=== PATIENT | female | born 1995 | race Caucasian/White ===

== ENCOUNTER 2017-06-23 23:09 | Emergency (ER) | payer BC, SELFPAY ==
[2017-06-23 23:16] VITALS: BP 138/124; PULSE 134; RESP 16; TEMP 37.2; O2SAT 100; BMI 32.1
--- NOTE | 2017-06-23 23:54 | HMH.EDALLER ---
ED Disposition Clinical Impression: Allergic reaction Qualifiers: Encounter type: initial encounter Qualified Code(s): T78.40XA - Allergy, unspecified, initial encounter Disposition: Home, Self-Care Condition on Discharge: Good Instructions: Urticaria (Alternative Therapy), DI for Hives Additional Instructions: Please take Benadryl 1-2 pills every 4-6 hours as needed, for itching, complete the steroid course (Medrol dosepack). Time of Disposition: 00:30 - Critical Care Critical Care Time: No Attestation: On 06/23/17, the high probability of a clinically significant, sudden or life threatening deterioration of the following system(s) required my full and direct attention, intervention and personal management. The time I documented below is in addition to time spent performing reported procedures but includes the following listed in this critical care notation. Medical Decision Making - Medical Records Medical records reviewed: Yes: I reviewed the patient's medical records. Vital Signs: 06/23/17 23:16 Temperature 99.0 F Temperature Source Oral Pulse Rate [Brachial] 134 H Respiratory Rate 16 Blood Pressure [Right Arm] 138/124 Blood Pressure Mean [Right Arm] 128 02 Sat by Pulse Oximetry 100 Oxygen Delivery Method Room Air Orders (Tests/Meds): ED MEDICATIONS Discontinued Medications Generic Name Dose Route Start Last Admin Trade Name Freq PRN Reason Stop Dose Admin Acetaminophen 1,000 mg 06/24/17 00:14 06/24/17 00:16 Tylenol 500mg Tablet PO 06/24/17 00:15 1,000 mg ONCE ONE Administration Diphenhydramine HCl 50 mg 06/23/17 23:25 06/23/17 23:33 Benadryl 50mg/1ml Vial IV 06/23/17 23:26 50 mg ONCE ONE Administration Diphenhydramine HCl 25 mg 06/24/17 00:34 06/24/17 00:50 Benadryl 50mg/1ml Vial IV 06/24/17 00:35 25 mg ONCE ONE Administration Famotidine 20 mg 06/23/17 23:25 06/23/17 23:33 Pepcid 20mg/2ml Vial IV 06/23/17 23:26 20 mg ONCE ONE Administration Methylprednisolone Sodium Succinate 125 mg 06/23/17 23:24 06/23/17 23:33 Solu-Medrol 125mg/2ml Vial IV 06/23/17 23:25 125 mg ONCE ONE Administration - Santana Inquiry Pt receiving controlled substance: No - Reevaluation(s) Time: 00:20 Reevaluation #1: Upon reevaluation patient appears medically stable, in no acute distress, with rash no significantly improved. Advised patient to take medications prescribed as directed and follow-up with PCP if any further relapses. Allergic React/Insect Bite HPI - General Chief complaint: Allergic Reaction Stated complaint: whelps over body and spreading Time Seen by Provider: 06/23/17 23:54 Mode of Arrival - ED Triage: Ambulatory Limitations: No Limitations - History of Present Illness HPI narrative: This is a 30-year-old male patient admitted to the emergency room with body aches, generalized rash and itching for the past 1 hour after eating at a local restaurant. Patient denies any neck swelling, face swelling, difficulty breathing or difficulty swallowing. MD complaint: allergic reaction Onset (ago): hour(s) (1) Exposure: food Symptoms: rash, itching Treatment prior to arrival: none Allergies/Adverse Reactions: Allergies Allergy/AdvReac Type Severity Reaction Status Date / Time No Known Allergies Allergy Verified 06/23/17 23:23 Previous Allergic Reaction History: none Severity: mild - Related Data Home Medications Medication Instructions Recorded Confirmed Noreth-Ethinyl Estradiol/Iron 1 tab PO HS 06/24/17 06/25/17 [Hozczylm-Cffbw-Ev 0.8-0.025 mg] Previous Rx's Medication Instructions Recorded Azithromycin [Zithromax 500mg Tab 500 mg PO DAILY #3 tab 06/26/17 [facility]] Cefdinir [Omnicef 300mg Capsule] 300 mg PO BID #20 cap 06/26/17 [facility] History I have reviewed the patient's past medical history: Yes - *Social History Smoking Status: Current every day smoker Tobacco Type: cigarettes A
== END 2017-06-24 00:54 | disposition home or self-care (01) ==
PROVIDERS: Emergency Provider Emergency Medicine; Family Provider Family Medicine
DX: L50.0 Allergic urticaria (principal); F17.210 Nicotine dependence, cigarettes, uncomplicated; Z79.3 Long term (current) use of hormonal contraceptives
CPT/HCPCS: 96374; 96375; 96376; 99282

== ENCOUNTER 2017-06-24 16:29 | Observation (INO) | payer BC, SELFPAY ==
--- NOTE | 2017-06-24 16:33 | HMH.HP ---
*Admission Date: 06/24/17 <Shagufta Cooper 06/24/17 16:38> *Chief complaint: SOA, chest tightness, hives <Shagufta Cooper 06/24/17 16:38> *History of present illness: Ms. Ordaz is a 22 yo female who began getting SOA yesterday, she then broke out in hives. She states she had a cough and some RUQ pain that began one day prior to her SOA and hives. The hives became so bad she presented to the ER. She was given steroids, benadryl, and famotadine and sent home with a rx for a steroid pack, which she has not yet filled. She states the hives improved but the SOA did not. Her chest feels tight, like someone is sitting on it. Of note, she takes OCP's and has smoked about 3/4 a pack of cigarettes for the past few years. She did not have any workup for her SOA in the ER. She presented to the office of [facility] today as a f/u and is still having the SOA and CP. She states the hives are starting to return on her ankles. Her HR was elevated in the office. She will be admitted for further evaluation and treatment and to r/o a PE. <Shagufta Cooper 06/24/17 17:06> [facility] History I have reviewed the patient's past medical history: Yes <Shagufta Cooper 06/24/17 17:06> Medical History: Denies:: Arrhythmia, Asthma, Atherosclerotic Heart Disease, Atrial Fibrillation, Cardiomyopathy, Chronic Obstructive Pulmonary Disease (COPD), Coronary Artery Disease, Deep Vein Thrombosis, Diabetes Mellitus Type 2, Gastroesophageal Reflux Disease(GERD), Hyperlipidemia, Hypertension, Migraine, Pulmonary Embolism, Renal Insufficiency, Valvular Heart Disease <Shagufta Cooper 06/24/17 17:06> Laterality Cases: Bilateral: Tonsillectomy <Shagufta Cooper 06/24/17 17:06> - *Social History Smoking Status: Current every day smoker <Shagufta Cooper 06/24/17 16:38> Tobacco Type: cigarettes <Shagufta Cooper 06/24/17 16:38> Alcohol Intake: never <Shagufta Cooper 06/24/17 16:38> *Family Hx:: no Anemia, no Asthma, no Cancer, no Coronary Artery Disease, no Diabetes, no Heart Attack, no Hyperlipidemia, no Hypertension, no Stroke <Shagufta Cooper 06/24/17 17:06> Review of Systems - Constitutional Denies fatigue, Denies night sweats, Denies weakness <Shagufta Cooper 06/24/17 17:06> - Eyes Denies blurry vision, Denies double vision <Shagufta Cooper 06/24/17 17:06> - ENT Denies nasal congestion, Denies sore throat <Shagufta Cooper 06/24/17 17:06> - *Cardiovascular Reports chest pain, Reports shortness of breath, Denies generalized swelling <Shagufta Cooper 06/24/17 17:06> - *Respiratory Reports cough, Reports shortness of breath <Shagufta Cooper 06/24/17 17:06> - *Gastrointestinal Reports abdominal pain (RUQ), Denies loose stools, Denies heartburn, Denies nausea, Denies vomiting <Shagufta Cooper 06/24/17 17:06> - *Genitourinary Denies difficulty urinating, Denies painful urination <Shagufta Cooper 06/24/17 17:06> - *Musculoskeletal Denies joint pain, Denies body aches <Shagufta Cooper 06/24/17 17:06> - *Neurologic Denies dizziness, Denies headache(s) <Shagufta Cooper 06/24/17 17:06> Meds Home Medications Medication Instructions Recorded Confirmed Type Noreth-Ethinyl Estradiol/Iron 1 tab PO DAILY 06/24/17 06/24/17 History [Qrbhwbpr-Shcuw-Fz 0.8-0.025 mg] <Johnny Escoto 06/24/17 18:33> Allergies Allergy/AdvReac Type Severity Reaction Status Date / Time No Known Allergies Allergy Verified 06/23/17 23:23 <Johnny Escoto 06/24/17 18:33> Exam Vital signs and Labs for Last 24 Hours: Temp Resp BP Pulse Ox 98.3 F 117 H 140/88 95 06/24/17 16:46 06/24/17 16:46 06/24/17 16:46 06/24/17 16:46 Laboratory Results - last 24 hr 06/24/17 17:30: WBC 12.1 H, RBC 4.85, Hgb 13.8, Hct 41.1, MCV 84.7, MCH 28.5, MCHC 33.6, RDW 13.1, Plt Count 316, MPV 8.2, Neut % (Auto) 85.2 H, Lymph % (Auto) 11.0, [place] % (Auto) 3.4, Eos % (Auto) 0.2, Baso % (Auto) 0.3, Neut # (Auto) 10.3 H, Lymph # (Auto) 1.3, [place] # (Auto) 0.4, Eos
--- NOTE | 2017-06-24 16:38 | P.HP_ITS ---
*Admission Date: 06/24/17 <Shagufta Cooper 06/24/17 16:38> *Chief complaint: SOA, chest tightness, hives <Shagufta Cooper 06/24/17 16:38> *History of present illness: Ms. Ordaz is a 22 yo female who began getting SOA yesterday, she then broke out in hives. She states she had a cough and some RUQ pain that began one day prior to her SOA and hives. The hives became so bad she presented to the ER. She was given steroids, benadryl, and famotadine and sent home with a rx for a steroid pack, which she has not yet filled. She states the hives improved but the SOA did not. Her chest feels tight, like someone is sitting on it. Of note, she takes OCP's and has smoked about 3/4 a pack of cigarettes for the past few years. She did not have any workup for her SOA in the ER. She presented to the office of [facility] today as a f/u and is still having the SOA and CP. She states the hives are starting to return on her ankles. Her HR was elevated in the office. She will be admitted for further evaluation and treatment and to r/o a PE. <Shagufta Cooper 06/24/17 17:06> [facility] History I have reviewed the patient's past medical history: Yes <Shagufta Cooper 06/24 17:06> Medical History: Denies:: Arrhythmia, Asthma, Atherosclerotic Heart Disease, Atrial Fibrillation, Cardiomyopathy, Chronic Obstructive Pulmonary Disease (COPD), Coronary Artery Disease, Deep Vein Thrombosis, Diabetes Mellitus Type 2, Gastroesophageal Reflux Disease(GERD), Hyperlipidemia, Hypertension, Migraine, Pulmonary Embolism, Renal Insufficiency, Valvular Heart Disease <Shagufta Cooper 06/24/17 17:06> Laterality Cases: Bilateral: Tonsillectomy <Shagufta Cooper 06/24/17 17:06> - *Social History Smoking Status: Current every day smoker <Shagufta Cooper 06/24/17 16:38> Tobacco Type: cigarettes <Shagufta Cooper 06/24/17 16:38> Alcohol Intake: never <Shagufta Cooper 06/24/17 16:38> *Family Hx:: no Anemia, no Asthma, no Cancer, no Coronary Artery Disease, no Diabetes, no Heart Attack, no Hyperlipidemia, no Hypertension, no Stroke < Shagufta Cooper 06/24/17 17:06> Review of Systems - Constitutional Denies fatigue, Denies night sweats, Denies weakness <Shagufta Cooper 17:06> - Eyes Denies blurry vision, Denies double vision <Shagufta Cooper 06/24/17 17:06> - ENT Denies nasal congestion, Denies sore throat <Shagufta Cooper 06/24/17 17:06> - *Cardiovascular Reports chest pain, Reports shortness of breath, Denies generalized swelling < Shagufta Cooper 06/24/17 17:06> - *Respiratory Reports cough, Reports shortness of breath <Shagufta Cooper 06/24/17 17:06> - *Gastrointestinal Reports abdominal pain (RUQ), Denies loose stools, Denies heartburn, Denies nausea, Denies vomiting <Shagufta Cooper 06/24/17 17:06> - *Genitourinary Denies difficulty urinating, Denies painful urination <[facility]:06> - *Musculoskeletal Denies joint pain, Denies body aches <Shagufta Cooper 06/24/17 17:06> - *Neurologic Denies dizziness, Denies headache(s) <Shagufta Cooper 06/24/17 17:06> Meds Home Medications Medication Instructions Recorded Confirmed Type Noreth-Ethinyl Estradiol/Iron 1 tab PO DAILY 06/24/17 06/24/17 History [Ogtqvyav-Pbmzq-Bg 0.8-0.025 mg] <Johnny Escoto 06/24/17 18:33> Allergies Allergy/AdvReac Type Severity Reaction Status Date / Time No Known Allergies Allergy Verified 06/23/17 23:23 <Johnny Escoto 06/24/17 18:33> Exam Vital signs and Labs for Last 24 Hours: Temp Resp BP Pu
[2017-06-24 16:46] VITALS: BP 140/88; RESP 117; TEMP 36.8; O2SAT 95; BMI 32.4; BMI 33.5
--- NOTE | 2017-06-24 17:03 | CT_ITS ---
CT Req chest with PE protocol CLINICAL INDICATION: ITS.REASON: Chest pain, shortness of breath ORDERING PHYSICIAN: Johnny Escoto MD PATIENT AGE: 22 years TECHNIQUE: Axial images obtained following intravenous ministration 66 mL's of Isovue-370 COMPARISON: None FINDINGS: No evidence of pulmonary embolus. No evidence of aortic aneurysm or dissection. No mediastinal or hilar mass. There are few scattered small nodes in the mediastinum but no dominant adenopathy. There are small nodes in the right hilum measuring up to 14 x 12 mm. Patchy areas of groundglass opacity noted in both lungs suggesting low-grade pneumonia. No effusions or suspicious nodules. IMPRESSION: 1. No evidence of pulmonary embolus. 2. Bilateral patchy areas of groundglass density suspicious for low-grade pneumonia
[2017-06-24 18:11] LABS: Basophils % 0.3 % (0.1-2.0); Eosinophils % 0.2 % (0.1-12.0); Hematocrit 41.1 % (37.0-47.0); Hemoglobin 13.8 g/dL (12.2-16.2); Lymphocytes # 1.3 K/mm3 (0.7-4.5); Mean Corpuscular HGB Conc 33.6 g/dL (31.8-35.4); Mean Corpuscular Hemoglobin 28.5 pg (27.0-31.2); Mean Corpuscular Volume 84.7 fl (81-99); Mean Platelet Volume 8.2 fl (7.4-10.4); Monocytes # 0.4 K/mm3 (0.1-1.0); Monocytes % 3.4 % (1.7-9.3); Neutrophils # 10.3 K/mm3 (1.8-7.8); Neutrophils % 85.2 % (37.0-80.0); Platelet Count 316 K/mm3 (142-424); Red Blood Count 4.85 M/mm3 (4.20-5.40); Red Cell Distribution Width 13.1 % (11.5-17.5); White Blood Count 12.1 K/mm3 (4.8-10.8)
[2017-06-24 18:20] LABS: HCG Qualitative, Serum Negative (Negative)
[2017-06-24 18:24] LABS: Alanine Aminotransferase 20 U/L (12-78); Albumin Level 3.9 gm/dL (3.4-5.0); Albumin/Globulin Ratio 1.1 (1.1-1.8); Alkaline Phosphatase 72 U/L (46-116); Aspartate Amino Transferase 14 U/L (15-37); Bilirubin,Total 0.3 mg/dL (0.2-1.0); Blood Urea Nitrogen 16 mg/dL (7-18); Calcium 9.4 mg/dL (8.5-10.1); Carbon Dioxide 22 mmol/L (21.0-32.0); Chloride 103 mmol/L (98-107); Creatinine Clearance Estimated 164 mL/min (0-300); Creatinine,Serum 0.71 mg/dL (0.55-1.02); Estimated Glomerular Filt Rate 104 ml/min (>60); GFR (African American) 126 ML/MIN (>60); Globulin 3.7 gm/dl (1.3-3.2); Glucose 102 mg/dL (74-106); Sodium 139 mmol/L (136-145); Total Protein,Serum 7.6 gm/dL (6.4-8.2)
[2017-06-24 18:26] LABS: MANUAL DIFFERENTIAL MANUAL DIFFERENTIAL (MANUAL DIFF)
[2017-06-24 18:33] VITALS: PULSE 115; RESP 22; O2SAT 96
[2017-06-24 18:43] LABS: Mycoplasma Pneumo IGM (Rapid) Non-Reactive (Non-Reactiv)
--- NOTE | 2017-06-24 19:06 | CT_ITS ---
CT angio chest Ordering Physician: Johnny Escoto MD Patient Age: 22 years: Female HISTORY: ITS.REASON: CHEST PAIN, SOA symptoms yesterday. TECHNIQUE: Helical CT scanning performed the chest following 70 cc Isovue-370 followed x 40 mL normal saline. From the since sections thickened axial images performed as well as thick slab volume MIPp sagittal and coronal image sets COMPARISON :. No previous CT chests. plain films chest from 01/2009 PA lateral FINDINGS . Very good enhancement of pulmonary artery with no evidence of pulmonary embolism. Pulmonary Vessels are well visualized without and appear normal. The aorta is normal caliber and appearance. It unremarkable Mediastinum. Small-Moderate size nodes AP window largest measuring 12 x 7.5 mm . Moderate noted to subcarinal region. Generous interstitium and small nodes in both hilar regions but no significant mass or adenopathy. Minimal subtle residual thymus tissue anterior mediastinum noted Heart normal size no pericardial effusion dense breasts. Lung beltran. Subtle patchy areas of mild groundglass opacity in both lung beltran likely suspect for areas of pneumonia. This is most evident at the left infrahilar region towards the left lower lobe as well as lingula,... With subtle peribronchial infiltrate left suprahilar region as well. It small scattered patchy areas of infiltrate elsewhere. Borderline airway thickening particularly on the left Upper abdomen unremarkable. Adrenals normal. Liver spleen pancreas unremarkable.. Questionable faint calcifications at superior left and right breast. Unlikely significant in this age patient. T-spine intact. Osseous structures intact. Unremarkable. IMPRESSION 1. No evidence of pulmonary embolism. 2. Subtle groundglass infiltrates scattered throughout lung beltran bilateral compatible with areas of low-grade pneumonia. Most evident infiltrate seen left infrahilar region towards LLL & lingula; as well as very subtle infiltrate left suprahilar area into medial L UL. 3. Other minor observations in text
[2017-06-24 19:17] LABS: Lymphocytes % 7 % (10-50); Monocytes % 4 % (2-9); Neutrophils % 89 % (42-76); Total Cells Counted 100
[2017-06-24 19:18] LABS: Platelet Estimate Normal; RBC Morphology Normal
[2017-06-24 21:01] VITALS: BP 135/65; PULSE 101; RESP 20; TEMP 36.7; O2SAT 96
--- NOTE | 2017-06-24 21:22 | PC.NURSE ---
Dr. Escoto visited. No new orders noted at this time
[2017-06-24 22:35] VITALS: PULSE 107; O2SAT 98
[2017-06-25] VITALS (9 sets, daily range): BP systolic 94–116; BP diastolic 45–64; PULSE 80–96; RESP 18–24; TEMP 36.3–36.6; O2SAT 96–100
--- NOTE | 2017-06-25 02:57 | PC.NURSE ---
PATIENT RESTING AT BEGINNING OF SHIFT. RECEIVED ROCEPHIN AND ZITHRO INFUSION WITH NO C/O ADVERSE REACTIONS. AROUND 2350 PATIENT ASKED FOR THIS NURSE TO COME TO THE ROOM. LARGE SCATTERED WELTS, BRIGHT RED RASH COVERING MOST OF HER BODY. 25 MG OF BENADRYL HAD JUST BEEN GIVEN 1 HOUR PRIOR. WEIGHER PRODUCTION MD FOR MULBERRY WAS TAMAR, TAMAR WAS PAGED AND 25 MG OF BENADRYL AND 40 MG OF PEPCID WAS ORDERED
--- NOTE | 2017-06-25 07:14 | PC.NURSE ---
REPORT GIVEN TO Neha CORBIN W/C
--- NOTE | 2017-06-25 07:34 | PC.NURSE ---
Received report from Catalina Rebolledo RN
--- NOTE | 2017-06-25 07:42 | PC.NURSE ---
0744 - Pt /c c/o increased itching and rash on legs, arms, and lower abd. Medicated with Benadryl 25mg IVP per MAR documentation.
--- NOTE | 2017-06-25 08:42 | HMH.ACPN2 ---
<Shagufta Cooper - Last Filed: 06/25/17 08:42> Internal Medicine - PN: Subj *Date: 06/25/17 *Time: 08:42 Interval history: She states she is feeling slightly better this morning. She is on nasal oxygen. She still coughing up sputum. She broke out in hives again during the night. She was given some Benadryl and it is slightly better this morning. She is unsure what is causing her to continue to break out. Exam Vital signs and Labs for Last 24 Hours: Temp Pulse Resp BP Pulse Ox 97.9 F 93 H 20 99/53 98 06/25/17 04:00 06/25/17 04:00 06/25/17 04:00 06/25/17 04:00 06/25/17 04:00 Laboratory Results - last 24 hr 06/24/17 17:30: WBC 12.1 H, RBC 4.85, Hgb 13.8, Hct 41.1, MCV 84.7, MCH 28.5, MCHC 33.6, RDW 13.1, Plt Count 316, MPV 8.2, Neut % (Auto) 85.2 H, Lymph % (Auto) 11.0, [place] % (Auto) 3.4, Eos % (Auto) 0.2, Baso % (Auto) 0.3, Neut # (Auto) 10.3 H, Lymph # (Auto) 1.3, [place] # (Auto) 0.4, Eos # (Auto) 0.0, Baso # (Auto) 0.0, Total Counted 100, Neutrophils % (Manual) 89 H, Lymphocytes % (Manual) 7 L, Monocytes % (Manual) 4, Platelet Estimate Normal, RBC Morphology Normal 06/24/17 17:30: Sodium 139, Potassium 4.0, Chloride 103, Carbon Dioxide 22, Anion Gap 18.0 H, BUN 16, Creatinine 0.71, Estimated Creat Clear 164, Estimated GFR 104, Est GFR ( Amer) 126, Glucose 102, Calcium 9.4, Total Bilirubin 0.3, AST 14 L, ALT 20, Alkaline Phosphatase 72, Total Protein 7.6, Albumin 3.9, Globulin 3.7 H, Albumin/Globulin Ratio 1.1 06/24/17 17:30: Influenza Type A Ag Negative, Influenza Type B Ag Negative, Mycoplasma pneumon IgM Non-reactive 06/24/17 17:30: Serum HCG, Qual Negative I & O for Last 24 hours: Intake & Output 06/22/17 06/23/17 06/24/17 06/25/17 11:59 11:59 11:59 11:59 Intake Total 240 / 240 Balance 240 / 240 Weight 183 lb Microbiology Reports for the Last 24 Hours: Microbiology 06/24/17 17:03 Sputum - Expectorated Sputum Gram Stain - Final - Constitutional no acute distress - *Routine Respiratory Exam Present: crackles (faint bilateral rales) - *Routine Cardiovascular Exam Present: RRR - *Routine Abdominal Exam Present: soft, normoactive bowel sounds. Absent: tenderness - *Routine Extremities Exam Absent: edema - *Routine Skin Exam Present: urticaria (on abdomen and legs, pruritic) Assessment and Plan (1) Pneumonia Current visit: Yes Status: Acute Category: Medical Code(s): J18.9 - Pneumonia, unspecified organism (2) Shortness of breath Current visit: Yes Status: Acute Category: Medical Code(s): R06.02 - Shortness of breath (3) Tachycardia Current visit: Yes Status: Acute Category: Medical Code(s): R00.0 - Tachycardia, unspecified (4) Chest pain Current visit: Yes Status: Acute Category: Medical Code(s): R07.9 - Chest pain, unspecified (5) Wheezing Current visit: Yes Status: Acute Category: Medical Code(s): R06.2 - Wheezing (6) Rales Current visit: Yes Status: Acute Category: Medical Code(s): R09.89 - Other specified symptoms and signs involving the circulatory and respiratory systems (7) Hives Current visit: Yes Status: Acute Category: Medical Code(s): L50.9 - Urticaria, unspecified (8) Tobacco use Current visit: Yes Status: Chronic Category: Social Hx Code(s): Z72.0 - Tobacco use - Assessment and plan all Dx Assessment and Plan for all problems:: She has been started on antibiotics for her pneumonia. She received Benadryl and Pepcid during the night and her hives are better but are not gone. Will discuss with Dr. Escoto possibly starting on some steroids. Await sputum culture. <Johnny Escoto - Last Filed: 06/25/17 10:45> Internal Medicine - PN: Subj *Date: 06/25/17 *Time: 10:44 Exam Vital signs and Labs for Last 24 Hours: Temp Pulse Resp BP Pulse Ox 97.6 F 86 22 101/56 99 06/25/17 08:00 06/25/17 08:00 06/25/17 08:00 06/25/17 08:00 06/25/17 08
--- NOTE | 2017-06-25 08:45 | P.PN_ITS ---
<Shagufta Cooper - Last Filed: 06/25/17 08:42> Internal Medicine - PN: Subj *Date: 06/25/17 *Time: 08:42 Interval history: She states she is feeling slightly better this morning. She is on nasal oxygen. She still coughing up sputum. She broke out in hives again during the night. She was given some Benadryl and it is slightly better this morning. She is unsure what is causing her to continue to break out. Exam Vital signs and Labs for Last 24 Hours: Temp Pulse Resp BP Pulse Ox 97.9 F 93 H 20 99/53 98 06/25/17 04:00 06/25/17 04:00 06/25/17 04:00 06/25/17 04:00 06/25/17 04:00 Laboratory Results - last 24 hr 06/24/17 17:30: WBC 12.1 H, RBC 4.85, Hgb 13.8, Hct 41.1, MCV 84.7, MCH 28.5, MCHC 33.6, RDW 13.1, Plt Count 316, MPV 8.2, Neut % (Auto) 85.2 H, Lymph % (Auto ) 11.0, [place] % (Auto) 3.4, Eos % (Auto) 0.2, Baso % (Auto) 0.3, Neut # (Auto) 10.3 H, Lymph # (Auto) 1.3, [place] # (Auto) 0.4, Eos # (Auto) 0.0, Baso # (Auto) 0.0, Total Counted 100, Neutrophils % (Manual) 89 H, Lymphocytes % (Manual) 7 L , Monocytes % (Manual) 4, Platelet Estimate Normal, RBC Morphology Normal 06/24/17 17:30: Sodium 139, Potassium 4.0, Chloride 103, Carbon Dioxide 22, Anion Gap 18.0 H, BUN 16, Creatinine 0.71, Estimated Creat Clear 164, Estimated GFR 104, Est GFR ( Amer) 126, Glucose 102, Calcium 9.4, Total Bilirubin 0.3, AST 14 L, ALT 20, Alkaline Phosphatase 72, Total Protein 7.6, Albumin 3.9, Globulin 3.7 H, Albumin/Globulin Ratio 1.1 06/24/17 17:30: Influenza Type A Ag Negative, Influenza Type B Ag Negative, Mycoplasma pneumon IgM Non-reactive 06/24/17 17:30: Serum HCG, Qual Negative I & O for Last 24 hours: Intake & Output 06/22/17 06/23/17 06/24/17 06/25/17 11:59 11:59 11:59 11:59 Intake Total 240 / 240 Balance 240 / 240 Weight 183 lb Microbiology Reports for the Last 24 Hours: Microbiology 06/24/17 17:03 Sputum - Expectorated Sputum Gram Stain - Final - Constitutional no acute distress - *Routine Respiratory Exam Present: crackles (faint bilateral rales) - *Routine Cardiovascular Exam Present: RRR - *Routine Abdominal Exam Present: soft, normoactive bowel sounds. Absent: tenderness - *Routine Extremities Exam Absent: edema - *Routine Skin Exam Present: urticaria (on abdomen and legs, pruritic) Assessment and Plan (1) Pneumonia Current visit: Yes Status: Acute Category: Medical Code(s): J18.9 - Pneumonia, unspecified organism (2) Shortness of breath Current visit: Yes Status: Acute Category: Medical Code(s): R06.02 - Shortness of breath (3) Tachycardia Current visit: Yes Status: Acute Category: Medical Code(s): R00.0 - Tachycardia, unspecified (4) Chest pain Current visit: Yes Status: Acute Category: Medical Code(s): R07.9 - Chest pain, unspecified (5) Wheezing Current visit: Yes Status: Acute Category: Medical Code(s): R06.2 - Wheezing (6) Rales Current visit: Yes Status: Acute Category: Medical Code(s): R09.89 - Other specified symptoms and signs involving the circulatory and respiratory systems (7) Hives Current visit: Yes Status: Acute Category: Medical Code(s): L50.9 - Urticaria, unspecified (8) Tobacco use Current visit: Yes Status: Chronic Category: Social Hx Code(s): Z72.0 - Tobacco use - Assessment and plan all Dx Assessment and Plan for all problems:: She has been start
--- NOTE | 2017-06-25 10:42 | P.CONPHA_ITS ---
[facility] Pharmacy VTE Monitoring - Patient Demographics Admission date: 06/24/17 Report Date: 06/25/17 Time: 10:41 Allergies/Adverse Reactions: Patient Allergies No Known Allergies Allergy (Verified 06/23/17 23:23) Height: 1.57 m Weight: 83.007 kg Patient Problems: Current Active Problems Shortness of breath (Acute) Tachycardia (Acute) Chest pain (Acute) Wheezing (Acute) Rales (Acute) Hives (Acute) Tobacco use (Chronic) Pneumonia (Acute) - VTE Risk Labs: VTE Related Lab Results Hgb 13.8 g/dL (12.2-16.2) 06/24/17 17:30 Hct 41.1 % (37.0-47.0) 06/24/17 17:30 Plt Count 316 K/mm3 (142-424) 06/24/17 17:30 BUN 16 mg/dL (7-18) 06/24/17 17:30 Creatinine 0.71 mg/dL (0.55-1.02) 06/24/17 17:30 Estimated Creat Clear 164 mL/min (0-300) 06/24/17 17:30 Was VTE Risk Assessment Performed: Yes VTE Score: 0 VTE Risk Level: Very Low Risk - Prophylaxis VTE Prophylaxis Ordered?: Yes Types of VTE Prophylaxis: TEDS Knee High Location of Applied Device: Bilateral Lower Extremeties - VTE Diagnosis Confirmed Treatment or plan recommended: Continue Current Treatment
--- NOTE | 2017-06-25 15:01 | PC.NURSE ---
1501 - Pt has remained A&Ox3 this shift. VSS. Afebrile. Pt continues with blanchable rash to inner thighs this shift. Medicated with Benadryl 25mg IV per MAR for c/o itching /c rash. Heart rate reg. Lungs CTA. (R) AC IV became painful this shift and site changed to (L) FA. (R) AC IV removed. Pt is independent with bed mobility and ambulates within room. No c/o /c bowel/bladder verbalized this shift. Pt refused DEVIKA walsh. Will continue to monitor.
--- NOTE | 2017-06-25 16:43 | PC.NURSE ---
162 - Pt with hives and rash noted to trunk, back, BLEs, and BUEs. Dr. Medellin called and updated on pt's current condition. No new orders. Approved to administer Benadryl 25mg IV now. Medication administered per AUG.
--- NOTE | 2017-06-25 17:28 | PC.NURSE ---
1715 - Pt c/o burning with Azithromycin infusing @ 250ml/hr. IV rate decreased to 125ml/hr. Pt reports improvement of symptoms.
--- NOTE | 2017-06-25 18:26 | PC.NURSE ---
1826 - Pt ambulating in hallway with mother. Hives continue to be noticeable on Bilat medial thighs.
--- NOTE | 2017-06-25 18:54 | PC.NURSE ---
1899 - report given to Neha Gonzalez RN
[2017-06-26 04:00] VITALS: BP 99/50; PULSE 65; RESP 17; TEMP 36.7; O2SAT 99
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
--- NOTE | 2017-06-26 07:13 | PC.NURSE ---
REPORT GIVEN TO Neha CORBIN W/C
--- NOTE | 2017-06-26 07:32 | PC.NURSE ---
REPORT GIVEN TO KATHLEEN RN
--- NOTE | 2017-06-26 07:52 | PC.NURSE ---
0715 - Received report from Neha Gonzalez RN
--- NOTE | 2017-06-26 07:54 | HMH.ACPN2 ---
Internal Medicine - PN: Subj *Date: 06/26/17 *Time: 07:54 Interval history: Patient has improved, had 2 small episodes of hives yesterday. Breathing has improved, no chest pain now. Exam Vital signs and Labs for Last 24 Hours: Temp Pulse Resp BP Pulse Ox 98.0 F 65 17 99/50 99 06/26/17 04:00 06/26/17 04:00 06/26/17 04:00 06/26/17 04:00 06/26/17 04:00 Vital Signs Temp Pulse Pulse Resp BP Pulse Ox 06/26/17 04:00 98.0 F 65 17 99/50 99 06/25/17 23:57 97.3 F L 88 18 113/50 96 06/25/17 21:30 100 06/25/17 20:00 97.9 F 80 18 101/50 97 06/25/17 16:24 97.7 F 80 20 94/45 96 06/25/17 13:30 95 H 97 06/25/17 12:27 97.8 F 83 20 114/64 96 06/25/17 08:00 97.6 F 86 22 101/56 99 Intake and Output 06/25/17 06/26/17 06/26/17 19:59 03:59 11:59 Intake Total 480 / 480 500 / 500 Balance 480 / 480 500 / 500 Intake: Intake, Oral Amount 480 / 480 480 / 480 Intake, Other Amount Other: Number of Voids 3 Number of Unmeasured Voids 2 Number of Bowel Movements 0 I & O for Last 24 hours: Intake & Output 06/23/17 06/24/17 06/25/17 06/26/17 11:59 11:59 11:59 11:59 Intake Total 480 / 480 980 / 980 Balance 480 / 480 980 / 980 Weight 183 lb Microbiology Reports for the Last 24 Hours: Microbiology 06/24/17 17:03 Sputum - Expectorated Sputum Gram Stain - Final 06/24/17 17:30 Blood Blood Culture - Preliminary NO GROWTH AFTER 24 HOURS 06/24/17 17:30 Blood Blood Culture - Preliminary NO GROWTH AFTER 24 HOURS - Constitutional no acute distress - *Routine Respiratory Exam Present: CTA bilaterally - *Routine Cardiovascular Exam Present: RRR, Normal S1, Normal S2. Absent: murmur - *Routine Skin Exam Absent: rash Assessment and Plan (1) Pneumonia Current visit: Yes Status: Acute Category: Medical Code(s): J18.9 - Pneumonia, unspecified organism (2) Chest pain Current visit: Yes Status: Resolved Category: Medical Code(s): R07.9 - Chest pain, unspecified (3) Hives Current visit: Yes Status: Acute Category: Medical Code(s): L50.9 - Urticaria, unspecified (4) Tobacco use Current visit: Yes Status: Chronic Category: Social Hx Code(s): Z72.0 - Tobacco use - Assessment and plan all Dx Assessment and Plan for all problems:: Patient has improved. OK for discharge today, f/u in office in 2 days.
[2017-06-26 08:16] VITALS: BP 102/71; PULSE 75; RESP 20; TEMP 36.4; O2SAT 96
--- NOTE | 2017-06-26 08:37 | PC.NURSE ---
Addendum entered by Rosemary Vasquez RN 06/26/17 08:41: Home meds returned to Patient. Original Note: 0837 - Reviewed DC instructions with pt and her mother. All DC paperwork given to pt. Pt and mother verbalize understanding of all DC instructions. Pt ambulated off floor with [facility] staff and mother.
--- NOTE | 2017-06-28 17:33 | HMH.DCSUM ---
General - General Admission date: 06/24/17 Discharge date: 06/26/17 HPI HPI: Ms. Ordaz is a 22 yo female who began getting SOA yesterday, she then broke out in hives. She states she had a cough and some RUQ pain that began one day prior to her SOA and hives. The hives became so bad she presented to the ER. She was given steroids, benadryl, and famotadine and sent home with a rx for a steroid pack, which she has not yet filled. She states the hives improved but the SOA did not. Her chest feels tight, like someone is sitting on it. Of note, she takes OCP's and has smoked about 3/4 a pack of cigarettes for the past few years. She did not have any workup for her SOA in the ER. She presented to the office of [facility] today as a f/u and is still having the SOA and CP. She states the hives are starting to return on her ankles. Her HR was elevated in the office. She will be admitted for further evaluation and treatment and to r/o a PE. Objective Vital signs: Temp Pulse Resp BP Pulse Ox 97.6 F 75 20 102/71 96 06/26/17 08:16 06/26/17 08:16 06/26/17 08:16 06/26/17 08:16 06/26/17 08:16 Narrative: - Constitutional mild distress - *Routine HEENT Exam Head: Present: normocephalic, atraumatic Eye: Present: EOMI, PERRL ENT: Present: mucous membranes moist - *Routine Neck Exam Present: supple, full ROM. Absent: carotid bruit - *Routine Respiratory Exam Present: wheezes (RLL), crackles (LLL) - *Routine Cardiovascular Exam Comments: regular rhythm, tachycardic - *Routine Abdominal Exam Present: soft, normoactive bowel sounds. Absent: tenderness - *Routine Extremities Exam Present: full ROM. Absent: edema - *Routine Skin Exam Present: intact - *Routine Neurological Exam Present: alert, oriented X3 Hospital Course Hospital Course: The patient had a chest CT which showed no PE and bilateral pneumonia. She was started on antibiotics for her pneumonia. She received Benadryl and Pepcid during the night and her hives were better but were not gone. She was started on steroids. Her CP resolved and her hives improved. She was stable to be discharged home on abx. Results Labs on day of discharge: Preliminary micro results at discharge 06/24/17 17:30 Blood Culture - Preliminary Blood NO GROWTH AFTER 72 HOURS 06/24/17 17:30 Blood Culture - Preliminary Blood NO GROWTH AFTER 72 HOURS DS: Diagnosis - Discharge Diagnosis (1) Pneumonia Status: Acute (2) Shortness of breath Status: Acute (3) Tachycardia Status: Acute (4) Wheezing Status: Acute (5) Rales Status: Acute (6) Hives Status: Acute (7) Tobacco use Status: Chronic Meds Home Medications Medication Instructions Recorded Confirmed Type Noreth-Ethinyl Estradiol/Iron 1 tab PO HS 06/24/17 06/25/17 History [Jccahyib-Vuzlw-Oa 0.8-0.025 mg] Allergies Allergy/AdvReac Type Severity Reaction Status Date / Time No Known Allergies Allergy Verified 06/23/17 23:23 Discharge Plan - Patient Discharge Instructions ACTIVITY: Continue current activity DIET: continue same diet Patient Instructions: Pneumonia-Adult Forms: [facility] Work Release - Follow up Plan Follow up with: Johnny Escoto MD [Primary Care Provider] - 06/28/17 Disposition: Home, Self-Usp Medications: Home Medications Medication Instructions Recorded Confirmed Type Noreth-Ethinyl Estradiol/Iron 1 tab PO 06/24/17 06/25/17 History [Fjidfoau-Mfsrl-Hu 0.8-0.025 mg] Prescriptions/Medication Reconciliation: New Cefdinir [Omnicef 300mg Capsule] 300 mg PO BID #20 cap Azithromycin [Zithromax 500mg Tab Tri-Amrit] 500 mg PO DAILY #3 tab Continue Noreth-Ethinyl Estradiol/Iron [Ajqmormm-Iuxkz-Oz 0.8-0.025 mg] 1 tab PO HS
--- NOTE | 2017-06-28 17:39 | P.DS_ITS ---
General - General Admission date: 06/24/17 Discharge date: 06/26/17 HPI HPI: Ms. Ordaz is a 22 yo female who began getting SOA yesterday, she then broke out in hives. She states she had a cough and some RUQ pain that began one day prior to her SOA and hives. The hives became so bad she presented to the ER. She was given steroids, benadryl, and famotadine and sent home with a rx for a steroid pack, which she has not yet filled. She states the hives improved but the SOA did not. Her chest feels tight, like someone is sitting on it. Of note, she takes OCP's and has smoked about 3/4 a pack of cigarettes for the past few years. She did not have any workup for her SOA in the ER. She presented to the office of [facility] today as a f/u and is still having the SOA and CP. She states the hives are starting to return on her ankles. Her HR was elevated in the office. She will be admitted for further evaluation and treatment and to r/o a PE. Objective Vital signs: Temp Pulse Resp BP Pulse Ox 97.6 F 75 20 102/71 96 06/26/17 08:16 06/26/17 08:16 06/26/17 08:16 06/26/17 08:16 06/26/17 08:16 Narrative: - Constitutional mild distress - *Routine HEENT Exam Head: Present: normocephalic, atraumatic Eye: Present: EOMI, PERRL ENT: Present: mucous membranes moist - *Routine Neck Exam Present: supple, full ROM. Absent: carotid bruit - *Routine Respiratory Exam Present: wheezes (RLL), crackles (LLL) - *Routine Cardiovascular Exam Comments: regular rhythm, tachycardic - *Routine Abdominal Exam Present: soft, normoactive bowel sounds. Absent: tenderness - *Routine Extremities Exam Present: full ROM. Absent: edema - *Routine Skin Exam Present: intact - *Routine Neurological Exam Present: alert, oriented X3 Hospital Course Hospital Course: The patient had a chest CT which showed no PE and bilateral pneumonia. She was started on antibiotics for her pneumonia. She received Benadryl and Pepcid during the night and her hives were better but were not gone. She was started on steroids. Her CP resolved and her hives improved. She was stable to be discharged home on abx. Results Labs on day of discharge: Preliminary micro results at discharge 06/24/17 17:30 Blood Culture - Preliminary Blood NO GROWTH AFTER 72 HOURS 06/24/17 17:30 Blood Culture - Preliminary Blood NO GROWTH AFTER 72 HOURS DS: Diagnosis - Discharge Diagnosis (1) Pneumonia Status: Acute (2) Shortness of breath Status: Acute (3) Tachycardia Status: Acute (4) Wheezing Status: Acute (5) Rales Status: Acute (6) Hives Status: Acute (7) Tobacco use Status: Chronic Meds Home Medications Medication Instructions Recorded Confirmed Type Noreth-Ethinyl Estradiol/Iron 1 tab PO HS 06/24/17 06/25/17 History [Pbgwpmhe-Pglxn-Al 0.8-0.025 mg] Allergies Allergy/AdvReac Type Severity Reaction Status Date / Time No Known Allergies Allergy Verified 06/23/17 23:23 Discharge Plan - Patient Discharge Instructions ACTIVITY: Continue current activity DIET: continue same diet Patient Instructions: Pneumonia-Adult Forms: [facility] Work Release - Follow up Plan Follow up with: Abhishek
== END 2017-06-26 08:40 | disposition home or self-care (01) ==
PROVIDERS: Admitting Provider Family Medicine; Family Provider Family Medicine; PCP Family Medicine; Visit Provider Family Medicine
DX: J18.9 Pneumonia, unspecified organism (principal); R07.9 Chest pain, unspecified; R00.0 Tachycardia, unspecified; L50.9 Urticaria, unspecified; Z72.0 Tobacco use
CPT/HCPCS: 71275; 80053; 84703; 85007; 85025; 86738; 87040; 87070; 87205; 87275; 87276; 93005; 94640; 94760; 94761; G0378; J0456; Q9967

== ENCOUNTER → 2018-06-01 10:26 | Outpatient (CLI) | payer MEDICAID, SELFPAY ==
--- NOTE | 2018-06-01 10:30 | XR_ITS ---
XR chest 2V HISTORY: ITS.REASON: COUGH ORDERING PHYSICIAN: Johnny Escoto MD PATIENT AGE: 23 years Technique: PA and lateral chest COMPARISON: PA and lateral chest 01/30/[address] chest June 2017. FINDINGS: No focal pneumonia. Nothing definitely acute. Chest appears similar to 2009 CXR Small calcified hilar nodes bilaterally most evident at right eyad, again observed reflecting reflecting old granulomatous disease. Chest wall T-spine intact. Heart eyad and mediastinal structures satisfactory. No pleural effusion or pneumothorax. Normal pulmonary vascularity. IMPRESSION: Lungs clear with nothing definite acute.
== END ==
PROVIDERS: PCP Family Medicine; Visit Provider Family Medicine
DX: R05 Cough (principal)
CPT/HCPCS: 71046

== ENCOUNTER 2018-10-31 15:30 | Outpatient (RCR) | payer MEDICAID, SELFPAY ==
--- NOTE | 2018-10-12 14:38 | HMH.PTOPEV ---
PT Outpatient Evaluation Rehab PT Outpatient Evaluation Start: 10/12/18 13:51 Freq: Status: Active Protocol: Document 10/12/18 14:26 NAYE (Rec: 10/12/18 14:38 PHORROSEMARIE [id number]) Electronically Signed By Lupillo Dasilva, PT 10/12/18 14:26 Outpatient Therapy Subjective History Subjective History Pt is 23 yowf who presents with c/o pain in the mid to low back x ~ 1 yr with insidious onset of symptoms. She also reports feelings of intermittent tingling in the mid back, worse on the right side. 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 She reports no c/o weakness or headaches. She has no significant PMH. Chief Complaint Pain Symptom Type Sharp Symptoms Relieved By Rest/Positioning,OTC Meds Symptoms Aggravated By Standing,Physical Activity, Lifting Prior Functional Limitations None Current Functional Limitations Lifting,Standing Symptom Description Constant but Variable Level of pain today (0-10) 1 Pain scale - at its worst (0-10) 7 Lumbopelvic Eval Posture Thoracic Spine Posture Standing Position Neutral Palapation tenderness right thoracic spinal tenderness Yes paraspinal tenderness Yes Accessory Movement T-spine Vertebrae Accessory Movements Central [place] that Elicit Symptoms T10 bilateral T11 bilateral T12 bilateral Range of Motion Lumbar Spine Active Flexion Range of 0-65 Motion (degrees) Lumbar Spine Active Extension Range of 0-25 Motion (degrees) Left Lumbar Spine Lateral Flexion Active 0-25 Range of Motion (degrees) Right Lumbar Spine Lateral Flexion 0-25 Active Range of Motion (degrees) Manual Muscle Test Bilateral Knee Extension Strength Grade 5 Normal Knee Flexion Strength Grade 5 Normal Hip Flexion Strength Grade 5 Normal Hip Abduction Strength Grade 5 Normal Hip Adduction Strength Grade 5 Normal Hip External Rotation Strength Grade 5 Normal Hip Internal Rotation Strength Grade 5 Normal Extensor Hallucis Longus Strength Grade 5 Normal Ankle Dorsiflexion Strength Grade 5 Normal Gastronemius/Soleus Strength Grade 5 Normal DTR Rt Patellar 2+ Lt Patellar 2+ Rt Gastroc/Soleus 2+ Lt Gastroc/Soleus 2+ Special Tests Hip Evangelist (CORBIN) Test Negative Lef
== END 2018-10-31 15:35 | disposition home or self-care (01) ==
LOC: PT 15:30
PROVIDERS: Visit Provider Family Medicine
DX: M54.6 Pain in thoracic spine (principal)
CPT/HCPCS: 97010; 97014; 97035; 97110; 97140; 97163; G0283

== ENCOUNTER → 2019-10-11 14:09 | Outpatient (CLI) | payer BC, SELFPAY ==
[2019-10-11 14:44] LABS: Basophils % 0.2 % (0.1-2.0); Eosinophils # 0.1 K/mm3 (0.0-0.4); Eosinophils % 0.7 % (0.1-12.0); Hematocrit 39.3 % (37.0-47.0); Hemoglobin 12.9 g/dL (12.2-16.2); Lymphocytes # 2.7 K/mm3 (0.7-4.5); Mean Corpuscular HGB Conc 32.9 g/dL (31.8-35.4); Mean Corpuscular Hemoglobin 29.9 pg (27.0-31.2); Mean Platelet Volume 8.2 fl (7.4-10.4); Monocytes # 0.4 K/mm3 (0.1-1.0); Monocytes % 3.9 % (1.7-9.3); Neutrophils # 7.8 K/mm3 (1.8-7.8); Neutrophils % 71.2 % (37.0-80.0); Platelet Count 310 K/mm3 (142-424); Red Blood Count 4.32 M/mm3 (4.20-5.40); Red Cell Distribution Width 12.8 % (11.5-17.5)
[2019-10-13 08:14] LABS: HIV Screen 4th Generation wRfx Non Reactive (Non Reactive); Hepatitis B Surface Antigen Negative (Negative); Hepatitis C Antibody <0.1 s/co ratio (0.0-0.9); Rubella Antibodies, IgG 1.32 index (Immune >0.99)
[2019-10-13 10:54] LABS: Rapid Plasma Reagin Ab Titer Non Reactive
== END ==
PROVIDERS: Visit Provider Nurse Practitioner Obstetrics & Gynecology
DX: Z34.90 Encounter for supervision of normal pregnancy, unspecified, unspecified trimester (principal)
CPT/HCPCS: 36415; 85025; 86592; 86703; 86762; 86850; 87340; 87380; G0432

== ENCOUNTER → 2019-10-11 14:21 | Outpatient (CLI) | payer BC, SELFPAY ==
--- NOTE | 2019-10-11 14:21 | US_ITS ---
PROCEDURE: US OB TRANSVAGINAL CLINICAL INDICATION: for dates Early Ob for dates COMPARISON: No exams were available for comparison FINDINGS: An intrauterine gestational sac is present with a pole with a crown-rump length of 1.3cm correlating to gestational age of 7weeks 4days. heart tones are present with an FHR of 150bpm. Yolk sac is noted. Unremarkable adnexa IMPRESSION: Live IUP at 7 weeks 4 days Estimated due date by Ultrasound is 05/25/2020 Dictated by: Gary Sotomayor MD 10/11/2019 16:29 Electronically signed by Gary Sotomayor MD in [place] 10/11/2019 16:29
== END ==
PROVIDERS: PCP Family Medicine; Visit Provider Nurse Practitioner Obstetrics & Gynecology
DX: Z34.90 Encounter for supervision of normal pregnancy, unspecified, unspecified trimester (principal)
CPT/HCPCS: 76817

== ENCOUNTER → 2020-01-10 13:38 | Outpatient (CLI) | payer BC, SELFPAY | PROVIDERS: PCP Family Medicine; Visit Provider Physician Assistant | DX: Z03.818 Encounter for observation for suspected exposure to other biological agents ruled out (principal) | CPT/HCPCS: U0003 ==

== ENCOUNTER → 2020-05-13 08:43 | Outpatient (CLI) | payer BC, SELFPAY ==
--- NOTE | 2020-05-13 08:47 | US_ITS ---
PROCEDURE: US BREAST RT LIMITED CLINICAL INDICATION: MASTITIS,OBSTETRIC, MASTITIS, COMPARISON: No exams were available for comparison FINDINGS: There is diffuse heterogeneous echogenicity in the subcutaneous region of the right breast corresponding to the palpable abnormality. A discrete mass or localized fluid collection is not apparent at this region. There is some ductal ectasia. There is a small cyst measuring 9 x 8 mm at 11 o'clock IMPRESSION: Diffuse heterogeneous echogenicity in the area of palpable concern at the 3 o'clock region consistent with mastitis. No abscess. Subcutaneous edema and ductal ectasia also noted. Dictated by: Gary Sotomayor MD 05/15/2020 14:44 Gary Sotomayor MD in [place] 05/15/2020 14:44
== END ==
PROVIDERS: PCP Family Medicine; Visit Provider Obstetrics & Gynecology
DX: O91.219 Nonpurulent mastitis associated with pregnancy, unspecified trimester (principal); O91.22 Nonpurulent mastitis associated with the puerperium
CPT/HCPCS: 76642

== ENCOUNTER 2020-08-07 17:56 | Emergency (ER) | payer BC, SELFPAY ==
[2020-08-07 18:17] VITALS: BP 139/74; PULSE 101; RESP 16; TEMP 37.1; O2SAT 98; BMI 33.0
--- NOTE | 2020-08-07 18:21 | HMH.EDUTC ---
[facility] [place] Disposition Clinical Impression: Abscess of groin, right Disposition: Home, Self-Care Condition on Discharge: Good Instructions: Boil Additional Instructions: Do warm sitz baths or sit in a warm salt water in a bath tub 3 times per day for the next several days. Take the medications as directed. Follow up with your primary care doctor or your office messenger. GO TO THE ER FOR ANY WORSENING SYMPTOMS OR CONCERNS Prescriptions: Sulfamethoxazole/Trimethoprim [Bactrim DS tablet] 1 each PO BID 10 Days #20 tab Transmission Status: Received by [facility] Mupirocin [Bactroban 2% Ointment 22gm tube] 1 applicatio TP TID 7 Days #1 tube Transmission Status: Received by [facility] cephALEXin [cephALEXin 500mg capsule] 500 mg PO Q6H 10 Days #40 cap Transmission Status: Received by [facility] Referrals: Riley Ocampo MD [Primary Care Provider] - Forms: Work/School Release Time of Disposition: 18:38 Medical Decision Making - Medical Records Medical records reviewed: No: I reviewed the patient's medical records. - [place]ana Inquiry Pt receiving controlled substance: No Vital Signs: 08/07/20 18:17 08/07/20 18:48 Temperature 98.7 F 98 F Temperature Source Oral Pulse Rate 96 H Pulse Rate [Right] 101 H Respiratory Rate 16 14 Blood Pressure 136/77 Blood Pressure [Right Arm] 139/74 Blood Pressure Mean [Right Arm] 95 Blood Pressure Source [Right Arm] Automatic Cuff Blood Pressure Position [Right Arm] Sitting 02 Sat by Pulse Oximetry 98 Orders (Tests/Meds): ED MEDICATIONS Discontinued Medications Generic Name Dose Route Start Last Admin Trade Name Freq PRN Reason Stop Dose Admin Ceftriaxone Sodium 1 gm 08/07/20 18:28 08/07/20 18:37 Ceftriaxone 1gm Vial IM 08/07/20 18:29 1 gm ONCE ONE Administration Protocol Lidocaine HCl 0 ml 08/07/20 18:28 08/07/20 18:37 Lidocaine 1% 5ml Pf Vial IM 08/07/20 18:29 2 ml ONCE ONE Administration [facility] [place] HPI - General Stated complaint: Boil on butt cheek Time Seen by Provider: 08/07/20 18:21 - History of Present Illness Provider Complaint: She states that for the past 3 days she has had a painful swollen area on the inside of her left thigh in her groin area. She denies any fever or chills. She states that the area is very painful. - Related Data Home Medications Medication Instructions Recorded Confirmed vits no.126-ferrous fum tab PO 10/31/19 10/31/19 28 mg iron-folic acid 800 mcg tablet Previous Rx's Medication Instructions Recorded vitamins with calcium 1 tab PO DAILY #30 tab 10/02/19 no.72-iron 29 mg-folic acid 1 mg tablet Mupirocin [Bactroban 2% Ointment 1 applicatio TP TID 7 Days #1 tube 08/07/20 22gm tube] Sulfamethoxazole/Trimethoprim 1 each PO BID 10 Days #20 tab 08/07/20 [Bactrim DS tablet] cephALEXin [cephALEXin 500mg 500 mg PO Q6H 10 Days #40 cap 08/07/20 capsule] Allergies Allergy/AdvReac Type Severity Reaction Status Date / Time No Known Allergies Allergy Verified 10/31/19 14:58 [facility] History - Hepatitis A Screen Attestation statement:: This patient has been screened for Hepatitis A risk factors. I have reviewed the patient's past medical history: Yes Medical History: Denies:: Arrhythmia, Asthma, Atherosclerotic Heart Disease, Atrial Fibrillation, Cancer, Cardiomyopathy, Chronic Obstructive Pulmonary Disease (COPD), Coronary Artery Disease, Deep Vein Thrombosis, Diabetes Mellitus Type 1, Diabetes Mellitus Type 2, Gastroesophageal Reflux Disease(GERD), Hyperlipidemia, Hypertension, Internal Pacemaker, Migraine, MRSA, Pulmonary Embolism, Renal Insufficiency, Valvular Heart Disease Laterality Cases: Bilateral: Tonsillectomy Other Surgeries: No: Pacemaker Amputation: No Fractures: No - Social History Smoking Status: Current every day smoker Tobacco Type: cigarettes # Packs/Day (cigarettes): 1 Alcohol
[2020-08-07 18:48] VITALS: BP 136/77; PULSE 96; RESP 14; TEMP 36.6
== END 2020-08-07 18:48 | disposition home or self-care (01) ==
PROVIDERS: Emergency Provider Nurse Practitioner Family; PCP Family Medicine
DX: L02.214 Cutaneous abscess of groin (principal); F17.210 Nicotine dependence, cigarettes, uncomplicated
CPT/HCPCS: 96372; 99202; G0463

== ENCOUNTER 2021-01-27 20:10 | Emergency (ER) | payer SELFPAY ==
[2021-01-27 21:02] VITALS: BP 130/84; PULSE 118; RESP 18; TEMP 36.8; O2SAT 96; BMI 33.8
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
[2021-01-27 21:30] VITALS: BP 128/79; PULSE 117; RESP 18; TEMP 36.8
== END 2021-01-27 21:32 | disposition home or self-care (01) ==
PROVIDERS: Emergency Provider Nurse Practitioner Family; PCP Family Medicine
DX: S09.22XA Traumatic rupture of left ear drum, initial encounter (principal); W21.05XA Struck by basketball, initial encounter; Y92.89 Other specified places as the place of occurrence of the external cause; F17.210 Nicotine dependence, cigarettes, uncomplicated
CPT/HCPCS: 99202; G0463

== ENCOUNTER 2022-04-23 01:54 | Emergency (ER) | payer OTHER, SELFPAY ==
[2022-04-23 01:55] VITALS: BP 128/93; PULSE 117; RESP 23; TEMP 36.8; O2SAT 99; BMI 30.2
[2022-04-23 02:11] VITALS: BMI 30.2
--- NOTE | 2022-04-23 02:12 | CT_ITS ---
PROCEDURE INFORMATION: Exam: CT Abdomen And Pelvis With Contrast Exam date and time: 04/23/2022 2:54 AM Age: 27 years old Clinical indication: Abdominal pain; Localized; Right upper quadrant (ruq); Additional info: Ruq abd pain, n/v TECHNIQUE: Imaging protocol: Computed tomography of the abdomen and pelvis with contrast. Radiation optimization: All CT scans at this facility use at least one of these dose optimization techniques: automated exposure control; mA and/or kV adjustment per patient size (includes targeted exams where dose is matched to clinical indication); or iterative reconstruction. Contrast material: ISOVUE; Contrast volume: 75 ml; Contrast route: IV; COMPARISON: No relevant prior studies available. FINDINGS: Lungs: Mild mosaic pattern of lung parenchyma within RIGHT lower lobe. Liver: Unremarkable. Gallbladder and bile ducts: No calcified stones. No ductal dilation. Pancreas: Unremarkable. No ductal dilation. Spleen: Small calcification. Adrenal glands: No mass. Kidneys and ureters: Unremarkable. No significant hydronephrosis. Stomach and bowel: No definite mural thickening. No obstruction. Appendix: Normal caliber. No inflammation. Intraperitoneal space: No significant fluid collection. No definite free air. Vasculature: Unremarkable. No aneurysm. Lymph nodes: No pathologically enlarged lymph nodes. Urinary bladder: Unremarkable. Reproductive: Tampon within vaginal vault. Bones/joints: No acute fracture. Soft tissues: Tiny umbilical hernia containing fat. IMPRESSION: 1. No definite acute intraabdominal abnormality. 2. Mosaic pattern of lung parenchyma, nonspecific. Clinical correlation is needed.
[2022-04-23 02:23] LABS: Microscopic, Urine URINE MICROSCOPIC (MICROSCOPIC)
[2022-04-23 02:28] LABS: Basophils # 0.2 K/mm3 (0-0.2); Basophils % 1.4 % (0.1-2.0); Eosinophils # 0.3 K/mm3 (0.0-0.4); Eosinophils % 2.4 % (0.1-12.0); Hemoglobin 14.2 g/dL (12.2-16.2); Lymphocytes # 4.5 K/mm3 (0.7-4.5); Lymphocytes % 34.8 % (10-50); Mean Corpuscular HGB Conc 32.3 g/dL (31.8-35.4); Mean Corpuscular Hemoglobin 28.9 pg (27.0-31.2); Mean Corpuscular Volume 89.3 fl (81-99); Mean Platelet Volume 8.1 fl (7.4-10.4); Monocytes # 0.4 K/mm3 (0.1-1.0); Monocytes % 3.4 % (1.7-9.3); Neutrophils # 7.5 K/mm3 (1.8-7.8); Platelet Count 405 K/mm3 (142-424); Red Blood Count 4.92 M/mm3 (4.20-5.40); Red Cell Distribution Width 13.8 % (11.5-17.5); White Blood Count 12.8 K/mm3 (4.8-10.8)
[2022-04-23 02:29] LABS: Chloride 106 mmol/L (98-107); Potassium 3.8 mmoL/L (3.5-5.1); Sodium 142 mmol/L (136-145)
[2022-04-23 02:29] LABS: Appearance,Urine CLEAR (Clear); Bilirubin,Urine Negative (Negative); Blood, Urine Negative (Negative); Color,Urine YELLOW (Yellow); Glucose,Urine (UA) Negative (Negative); Ketones,Urine Negative (Negative); Leukocyte Esterase,Urine Negative (Negative); Nitrate,Urine Negative (Negative); Protein,Urine Negative (Negative); Specific Gravity, Urine >= 1.030 (1.005-1.030); Urobilinogen,Urine 0.2 EU/dl (0.2)
[2022-04-23 02:31] VITALS: BP 125/56; PULSE 88; RESP 20; O2SAT 100
[2022-04-23 02:32] LABS: Alanine Aminotransferase 19 U/L (12-78); Alkaline Phosphatase 80 U/L (38-126); Amylase 69 U/L (30-110); Anion Gap 17.8 mEq/L (5-15); Aspartate Amino Transferase 25 U/L (14-36); Bilirubin,Total 0.2 mg/dl (0.2-1.3); Blood Urea Nitrogen 11 mg/dl (7-17); Calcium 9.4 mg/dl (8.4-10.2); Carbon Dioxide 22 mmol/L (22.0-30.0); Creatinine Clearance Estimated 168 mL/min (50-200); Estimated Glomerular Filt Rate 121 ml/min (>60); GFR (African American) 146 ML/MIN (>60); Glucose 104 mg/dl (74-100); Lipase 126 U/L (23-300)
[2022-04-23 02:33] LABS: Albumin Level 4.5 g/dl (3.5-5.0); Albumin/Globulin Ratio 1.7 (1.1-1.8); Globulin 2.7 g/dL (1.3-3.2); Total Protein,Serum 7.2 g/dl (6.3-8.2)
[2022-04-23 02:36] LABS: Lactic Acid 1.1 mmol/L (0.7-2.1)
--- NOTE | 2022-04-23 02:37 | HMH.EDABDPAI ---
Discharge Plan Disposition Patient Disposition: Home, Self-Care Chief Complaint: Abdominal Pain Prescriptions Prescriptions: No Action esomeprazole magnesium 40 mg capsule,delayed release(DR/EC) 40 mg PO DAILY Referrals Follow up/Referrals: Riley Ocampo MD [Primary Care Provider] - See instructions Clinical Impressions Clinical Impression: Abdominal pain Instructions Patient Instructions: DI for Acute Abdominal Pain Discharge ED Provider: Luiz Rich Abdominal Pain HPI General Chief Complaint: Abdominal Pain Stated Complaint: Upper abdominal pain radiating to back Time Seen by Provider: 04/23/22 02:37 Mode of Arrival: Family Vehicle Source of Information: Patient and Medical Record Limitations: No Limitations Description of Symptoms (Recalled from ER Triage Doc. by RN): Pt c/o severe RUQ ABD pain and n/v. States she began to have pain to RUQ starting 1 wk ago and saw her pcp who dx with GERD and prescribed Nexium. Pt states she is taking but sx's have persisted and tonight is severe. Denies any previous ABD surgeries. Denies any urogenital complaints. History of Present Illness HPI narrative: acute upper abd pain over the last week - saw pcp -worse tonight complaint: abdominal pain Onset (ago): day(s) Consistency: intermittent Location: RUQ Severity: moderate Quality: sharp Associated symptoms: denies other symptoms Related Data Home Medications Medication Instructions Recorded Confirmed esomeprazole magnesium 40 mg 40 mg PO DAILY GERD 04/23/22 04/23/22 capsule,delayed release Allergies Allergy/AdvReac Type Severity Reaction Status Date / Time No Known Allergies Allergy Verified 01/29/21 11:43 PFSH PFSH Social History Smoking Status: Current every day smoker tobacco type: cigarettes packs per day: 1 second hand exposure: Yes alcohol intake: never substance use type: denies use current occupational status: employed Travel in the last 8 weeks: None household members: family and children housing: apartment current occupation: [employer] current occupational exposures/hazards: No caffeine: Yes ROS Obtained: Yes All systems reviewed & no additional complaints except as documented Physical Exam General General appearance: alert Head Head exam: normocephalic Eye Eye exam: Present PERRL and EOMI ENT ENT exam: Present mucous membranes moist Neck Neck exam: Present trachea midline Respiratory Respiratory exam: Absent respiratory distress Cardiovascular Cardiovascular exam: Present regular rate Abdominal Exam Abdominal exam: Present soft and tenderness Abdominal tenderness: Present RUQ and moderate Extremities Exam Extremities exam: Present full ROM Neurological Exam Neurological exam: Present alert, oriented X3 and CN II-XII intact Psychiatric Psychiatric exam: Present normal affect Skin Skin exam: Absent rash Medical Decision Making Medical Records Medical records reviewed: Yes I reviewed the patient's medical records. Santana Inquiry Pt receiving controlled substance: No Vital Signs: 04/23/22 01:55 04/23/22 02:31 Temperature 98.3 F Temperature Source Oral Pulse Rate 88 Pulse Rate [Right] 117 H Respiratory Rate 23 20 Blood Pressure 125/56 L Blood Pressure [Right Arm] 128/93 H Blood Pressure Mean 81 Blood Pressure Mean [Right Arm] 104 Blood Pressure Source [Right Arm] Automatic Cuff 02 Sat by Pulse Oximetry 99 100 Oxygen Delivery Method Room Air Room Air Lab Data Lab results reviewed: Yes I reviewed the patient's lab results. Lab Results 04/23/22 02:00: Urine Color Yellow, Urine Appearance Clear, Urine pH 6.0, Ur Specific [place] >= 1.030, Urine Protein Negative, Urine Glucose (UA) Negative, Urine Ketones Negative, Urine Blood Negative, Urine Nitrate Negative, Urine Bilirubin Negative, Urine Urobilinogen 0.2, Ur Leukocyte Esterase Negative, Ur Squamous Epith Cells 3-5, Urine Bacteria T
[2022-04-23 02:44] LABS: Bacteria,Urine Trace /lpf
[2022-04-23 02:44] LABS: HCG Qualitative, Serum Negative (Negative)
--- NOTE | 2022-04-23 02:51 | PC.NURSE ---
Pt gone to RAD for CT
--- NOTE | 2022-04-23 03:03 | PC.NURSE ---
Pt back from RAD
--- NOTE | 2022-04-23 04:10 | PC.NURSE ---
Pt was sleeping. When awoke and asked if she was feeling better she shook her head yes.
--- NOTE | 2022-04-23 04:12 | PC.NURSE ---
Called to ask Indiana Dutton, if she would check with [facility] about pt scan
[2022-04-23 04:45] VITALS: BP 125/60; PULSE 75; RESP 17; TEMP 36.7; O2SAT 99
== END 2022-04-23 05:16 | disposition home or self-care (01) ==
PROVIDERS: Emergency Provider Emergency Medicine; PCP Family Medicine
DX: R10.9 Unspecified abdominal pain (principal); Z79.899 Other long term (current) drug therapy; Z72.0 Tobacco use; K21.9 Gastro-esophageal reflux disease without esophagitis
CPT/HCPCS: 74177; 80053; 81001; 82150; 83605; 83690; 84703; 85025; 96365; 96375; 99284; J2405; Q9967

== ENCOUNTER → 2022-04-28 08:57 | Outpatient (CLI) | payer OTHER, SELFPAY ==
--- NOTE | 2022-04-28 09:04 | US_ITS ---
FINAL REPORT CLINICAL HISTORY: RUQ PAIN and vomiting FINDINGS: Sonographic images of the right upper quadrant were obtained. The pancreas is partially obscured. The liver has an unremarkable appearance. Note is made of a stone filled gallbladder. There is a small amount of pericholecystic fluid. The gallbladder wall is thickened. The common duct measures 2 mm. Limited images of the right kidney are unremarkable. IMPRESSION: Stone filled gallbladder with a small amount of pericholecystic fluid and gallbladder wall thickening. Acute cholecystitis is not excluded. Reviewed, Interpreted and Dictated by Earle Hanson III, MD Transcribed by Samantha Monroy Authenticated and [facility]
== END ==
PROVIDERS: PCP Family Medicine; Visit Provider Family Medicine
DX: R10.11 Right upper quadrant pain (principal)
CPT/HCPCS: 76705

== ENCOUNTER → 2022-05-07 09:15 | Outpatient (CLI) | payer OTHER, SELFPAY ==
[2022-05-07 09:53] LABS: Basophils # 0.1 K/mm3 (0-0.2); Basophils % 0.7 % (0.1-2.0); Eosinophils # 0.3 K/mm3 (0.0-0.4); Eosinophils % 2.5 % (0.1-12.0); Hematocrit 43.1 % (37.0-47.0); Hemoglobin 14.1 g/dL (12.2-16.2); Lymphocytes # 2.9 K/mm3 (0.7-4.5); Lymphocytes % 30.3 % (10-50); Mean Corpuscular HGB Conc 32.8 g/dL (31.8-35.4); Mean Corpuscular Volume 88.5 fl (81-99); Mean Platelet Volume 8.1 fl (7.4-10.4); Monocytes # 0.4 K/mm3 (0.1-1.0); Monocytes % 3.6 % (1.7-9.3); Neutrophils # 6.1 K/mm3 (1.8-7.8); Neutrophils % 62.9 % (37.0-80.0); Platelet Count 359 K/mm3 (142-424); Red Blood Count 4.87 M/mm3 (4.20-5.40); Red Cell Distribution Width 13.8 % (11.5-17.5); White Blood Count 9.7 K/mm3 (4.8-10.8)
[2022-05-07 10:16] LABS: Urine Pregnancy, HCG Qual. Negative (Negative)
[2022-05-07 10:29] LABS: Alanine Aminotransferase 17 U/L (12-78); Albumin Level 4.5 g/dl (3.5-5.0); Alkaline Phosphatase 75 U/L (38-126); Anion Gap 11.5 mEq/L (5-15); Aspartate Amino Transferase 21 U/L (14-36); Bilirubin,Total 0.4 mg/dl (0.2-1.3); Blood Urea Nitrogen 13 mg/dl (7-17); Calcium 9.8 mg/dl (8.4-10.2); Carbon Dioxide 26 mmol/L (22.0-30.0); Chloride 107 mmol/L (98-107); Estimated Glomerular Filt Rate 87 ml/min (>60); GFR (African American) 105 ML/MIN (>60); Globulin 2.2 g/dL (1.3-3.2); Glucose 66 mg/dl (74-100); Potassium 4.5 mmoL/L (3.5-5.1); Sodium 140 mmol/L (136-145); Total Protein,Serum 6.7 g/dl (6.3-8.2)
== END ==
PROVIDERS: PCP Family Medicine; Visit Provider Surgery
DX: Z01.812 Encounter for preprocedural laboratory examination (principal); K81.9 Cholecystitis, unspecified; B96.29 Other Escherichia coli [E. coli] as the cause of diseases classified elsewhere
CPT/HCPCS: 36415; 80053; 81025; 85025; 87086; 87088; 87186

== ENCOUNTER 2022-05-13 06:49 | Day surgery (SDC) | payer OTHER, SELFPAY ==
[2022-05-10 12:21] VITALS: BMI 31.1
[2022-05-13] VITALS (12 sets, daily range): BP systolic 95–142; BP diastolic 63–88; PULSE 77–91; RESP 13–18; TEMP 36.5–38; O2SAT 95–99
--- NOTE | 2022-05-13 07:37 | P.PN_ITS ---
[facility] Disclaimer: The information contained in this section may have been updated after the patient was seen, as this information can be updated by other users. Medical History Asthma Gallbladder disease History of COVID-19 Pneumonia Urinary tract infection Surgical History Hx of tonsillectomy Family History Other No significant family history Social History Smoking Status: Current every day smoker tobacco type: cigarettes packs per day: 1 years smoked: 8 second hand exposure: No alcohol intake: never substance use type: denies use current occupational status: unemployed Travel in the last 8 weeks: None household members: family and children housing: apartment current occupation: [employer] current occupational exposures/hazards: No caffeine: Yes [facility] Anesthesia Checklist Patient Identification Patient Identification: Arm Band Structural Data Admitted From: Home Planned Operative Procedure/s: Laparoscopic Cholecystectomy Consent for Planned Operative Procedure(s) Verified: Yes Verified Documents: Surgical Consent and History and Physical NPO Status Verified Time NPO: 00:00 Additional verifications Anesthesia Reactions: No Hx Blood Transfusions: No Blood Transfusion Reaction: No Airway Assessment C-Spine Mobility Assessed: Yes TMJ Mobility Assessed: Yes Dentition: Good Dentition Neurological Assessment Level of Consciousness: Awake and Alert Anesthesia Plan Anesthesia Risk discussed: Yes Anesthesia Plan: Verified ASA Class: III Anesthesia Type: General
--- NOTE | 2022-05-13 09:45 | EXP.OP.NOTE ---
Date of procedure: 05/13/22 Pre-op Diagnosis:: Chronic calculus cholecystitis Post-op Diagnosis:: Same Procedure performed:: Laparoscopic cholecystectomy Surgeon:: Matt Griffin MD Anesthesia: GETNeha Estimated blood loss (mL): 15 Operative findings:: Fairly severe pericholecystic fat stranding Significant infundibular thickening Operative note:: After informed consent was obtained, the patient was taken to the operating room and placed in the supine position. General anesthesia was induced and the abdomen was prepped and draped in a sterile fashion. After infiltration with local anesthetic an infraumbilical incision was made. A Veress needle was placed in position. The abdomen was insufflated. A 5 mm optical trocar was placed in position. Under direct visualization, a 12 mm trocar was placed in the subxiphoid position and 2 additional 5 mm trocars were placed in the right upper quadrant. The gallbladder was elevated up and over the liver margin. The tissue around the cystic duct was carefully dissected. 3 clips were placed proximally and the duct was transected with harmonic michael. Harmonic michael were then utilized to dissect the gallbladder away from the liver margin with careful attention to the control of the cystic artery. The gallbladder was placed in a retrieval bag and removed through the subxiphoid trocar site. The right upper quadrant was thoroughly irrigated. No active bleeding or bile leak was noted. Fascia at the subxiphoid trocar site was reapproximated utilizing 0 Ethibond. The remaining trocars were removed. All wounds were irrigated and skin was closed with 4-0 Monocryl in a subcuticular fashion. Steri-Strips were applied. The patient's anesthetic agents were reversed and extubation was completed prior to transfer to recovery in stable condition. Condition: stable Disposition: PACU Specimens:: Gallbladder and contents Complications:: No immediate
--- NOTE | 2022-05-13 09:48 | EXP.ANES.I ---
[facility] Anesthesia Record Part I Anesthesia Record I Intake, IV Amount: 500 Estimated blood loss (mL): 5 Urine output (mL): 0 Blood Pressure: 142/88 SaO2: 95 Pulse Rate: 91 Respiratory Rate: 13 Temperature: 97.9 F Patient is:: Drowsy Stable to PACU at:: 09:45
--- NOTE | 2022-05-13 10:36 | SUR.PHASEI ---
1014-detailed report called to lenny vang in post op at this time 1016- pt left in stable condition with lenny vang in post op. Bed in lowest position with side rails up. all dressings CDI, VSS.
== END 2022-05-13 10:55 | disposition home or self-care (01) ==
PROVIDERS: PCP Family Medicine; Visit Provider Surgery
PROC: 0FT44ZZ Resection of Gallbladder, Percutaneous Endoscopic Approach (ICD-10-PCS; CPT 47562; principal; 2022-05-13 08:30)
DX: K80.10 Calculus of gallbladder with chronic cholecystitis without obstruction (principal); Z72.0 Tobacco use; Z79.899 Other long term (current) drug therapy
CPT/HCPCS: 47562; 96374; J2405

== ENCOUNTER 2022-10-28 11:14 | Emergency (ER) | payer OTHER, SELFPAY ==
[2022-10-28 11:15] VITALS: BP 114/68; PULSE 110; RESP 18; TEMP 37.1; O2SAT 99; BMI 30.2
--- NOTE | 2022-10-28 11:34 | EXP.UTC ---
Discharge Plan Disposition Patient Disposition: Home, Self-Care Condition: Good Prescriptions Prescriptions: New azithromycin [Zithromax] 250 mg tablet 250 mg PO UD DOSE PK Qty: 6 0RF Rx Instructions: Take two (2) tablets today, then one (1) tablet days #2 thru #5 benzonatate [benzonatate] 100 mg capsule 100 mg PO TIDP PRN (Reason: Cough) Qty: 30 0RF methylprednisolone 4 mg Tablets,Dose Pack 4 mg PO DIRECTED Qty: 21 0RF No Action hyoscyamine sulfate 0.125 mg tablet, sublingual 0.125 mg PO QID PRN (Reason: REFLUX) levofloxacin 500 mg Tablet 500 mg PO DAILY Referrals Follow up/Referrals: Riley Ocampo MD [Primary Care Provider] - See instructions Activity Restrictions/Add. Instructions Additional Instructions/Restrictions: Drink plenty of fluids. Take tylenol or ibuprofen for pain or fever. Take the medications as directed. Follow up with your regular doctor. GO TO THE ER FOR ANY WORSENING SYMPTOMS Clinical Impressions Clinical Impression: Acute bronchitis, Sinusitis Instructions Patient Instructions: Sinusitis, DI for Sinusitis Discharge ED Provider: Rafael Castillo [facility] General Stated complaint: Cough drainage chest congestion Time Seen by Provider: 10/28/22 11:34 History of Present Illness Provider Complaint: She states that for the past 3 days she has had worsening chest and sinus congestion. Related Data Home Medications Medication Instructions Recorded Confirmed hyoscyamine sulfate 0.125 mg 0.125 mg PO QID PRN REFLUX 05/10/22 05/26/22 sublingual tablet levofloxacin 500 mg tablet 500 mg PO DAILY UTI 05/10/22 05/26/22 Previous Rx's Medication Instructions Recorded azithromycin 250 mg tablet 250 mg PO UD DOSE PK #6 tabs 10/28/22 (Zithromax) benzonatate 100 mg capsule 100 mg PO TIDP PRN Cough #30 caps 10/28/22 methylprednisolone 4 mg tablets in 4 mg PO DIRECTED #21 tabs 10/28/22 a dose pack Allergies Allergy/AdvReac Type Severity Reaction Status Date / Time No Known Allergies Allergy Verified 05/26/22 09:36 [facility] Disclaimer: The information contained in this section may have been updated after the patient was seen, as this information can be updated by other users. Medical History (Updated 10/28/22 @ 11:46 by Rafael Castillo APRN) Asthma Gallbladder disease History of COVID-19 Pneumonia Urinary tract infection Surgical History (Updated 05/26/22 @ 09:37 by CARMELO Augustin) History of laparoscopic cholecystectomy Hx of tonsillectomy Family History Other No significant family history Social History Smoking Status: Current every day smoker tobacco type: cigarettes packs per day: 1 years smoked: 8 second hand exposure: No alcohol intake: never substance use type: denies use current occupational status: unemployed Travel in the last 8 weeks: None household members: family and children housing: apartment current occupation: [employer] current occupational exposures/hazards: No caffeine: Yes ROS Obtained: Yes All systems reviewed & no additional complaints except as documented Constitutional Constitutional: Reports poor appetite Eyes Eyes: Reports system reviewed and no additional complaints, except as documented ENT Ears, Nose, Mouth, and Throat: Reports as per HPI Cardiovascular Cardiovascular: Reports system reviewed and no additional complaints, except as documented and Denies chest pain Respiratory Respiratory: Denies shortness of breath, Reports chest congestion, Reports cough, Denies stridor and Denies wheezing Gastrointestinal Gastrointestingal: Reports system reviewed and no additional complaints, except as documented; Denies abdominal pain, diarrhea or vomiting Musculoskeletal Musculoskeletal: Reports syst
[2022-10-28 12:00] VITALS: BP 114/68; PULSE 110; RESP 18; TEMP 37.1; O2SAT 99
== END 2022-10-28 12:01 | disposition home or self-care (01) ==
PROVIDERS: Emergency Provider Nurse Practitioner Family; PCP Family Medicine
DX: J20.9 Acute bronchitis, unspecified (principal); J01.90 Acute sinusitis, unspecified; J45.909 Unspecified asthma, uncomplicated; F17.210 Nicotine dependence, cigarettes, uncomplicated
CPT/HCPCS: 99212; 99214; G0463

== ENCOUNTER 2023-01-30 17:50 | Day surgery (SDC) | payer OTHER, SELFPAY ==
[2023-01-30] VITALS (14 sets, daily range): BP systolic 103–140; BP diastolic 50–84; PULSE 76–114; RESP 14–20; TEMP 6.1–43; O2SAT 96–100; BMI 32.5
--- NOTE | 2023-01-30 17:58 | EXP.UTC ---
Discharge Plan Disposition Patient Disposition: Home, Self-Care Condition: Good Clinical Impressions Clinical Impression: Acute appendicitis Discharge ED Provider: Stephanie Ruff [facility] [facility] [place] General Chief complaint: Abdominal Pain Stated complaint: lower abd pain Time Seen by Provider: 01/30/23 17:58 History of Present Illness Provider Complaint: She states that she has had rlq abdominal pain and tenderness since this morning. She has had nausea but no vomiting. Her appetite has been very poor also. Related Data Home Medications Medication Instructions Recorded Confirmed hyoscyamine sulfate 0.125 mg 0.125 mg PO QID PRN REFLUX 05/10/22 05/26/22 sublingual tablet levofloxacin 500 mg tablet 500 mg PO DAILY UTI 05/10/22 05/26/22 Previous Rx's Medication Instructions Recorded azithromycin 250 mg tablet 250 mg PO UD DOSE PK #6 tabs 10/28/22 (Zithromax) benzonatate 100 mg capsule 100 mg PO TIDP PRN Cough #30 caps 10/28/22 methylprednisolone 4 mg tablets in 4 mg PO DIRECTED #21 tabs 10/28/22 a dose pack amoxicillin 500 mg-potassium 1 tab PO TID #21 tabs 01/30/23 clavulanate 125 mg tablet (Augmentin) hydrocodone 5 mg-acetaminophen 325 1 tab PO Q6H PRN post-op pain #17 01/30/23 mg tablet tabs Allergies Allergy/AdvReac Type Severity Reaction Status Date / Time No Known Allergies Allergy Verified 05/26/22 09:36 [facility] Disclaimer: The information contained in this section may have been updated after the patient was seen, as this information can be updated by other users. Medical History Asthma Gallbladder disease History of COVID-19 Pneumonia Urinary tract infection Surgical History History of laparoscopic cholecystectomy Hx of tonsillectomy Family History Other No significant family history Social History Smoking Status: Current every day smoker tobacco type: cigarettes packs per day: 1 years smoked: 8 second hand exposure: No alcohol intake: never substance use type: denies use current occupational status: unemployed Travel in the last 8 weeks: None household members: family and children housing: apartment current occupation: [employer] current occupational exposures/hazards: No caffeine: Yes ROS Obtained: Yes All systems reviewed & no additional complaints except as documented Constitutional Constitutional: Denies chills, Denies fever(s) and Reports poor appetite ENT Ears, Nose, Mouth, and Throat: Denies dizziness and Denies sore throat Cardiovascular Cardiovascular: Denies dyspnea Respiratory Respiratory: Denies chest congestion, Denies cough and Denies dyspnea Gastrointestinal Gastrointestingal: Reports as per HPI and abdominal pain Genitourinary Female Genitourinary: Denies difficulty voiding, Denies dysuria, Denies hematuria, Denies urinary frequency, Denies urinary incontinence, Denies urinary hesitancy and Denies urinary urgency Musculoskeletal Musculoskeletal: Denies arthralgias Integumentary/Breasts Skin/Breast: Denies rash Neurologic Neurologic: Denies dizziness Physical Exam General General appearance: alert and in no apparent distress Head Head exam: atraumatic and normocephalic Eye Eye exam: Present normal appearance, PERRL and EOMI ENT ENT exam: Present normal exam, normal oropharynx, mucous membranes moist, TM's normal bilaterally and normal external ear exam Neck Neck exam: Present normal inspection, full ROM and trachea midline; Absent tenderness, meningismus or lymphadenopathy Chest Chest inspection: Present normal inspection and symmetric chest wall rise; Absent tenderness, rash or abscess Respiratory Respiratory exam: Present normal lung sounds bilaterally; Absent respiratory distress,
[2023-01-30 18:11] LABS: Microscopic, Urine URINE MICROSCOPIC (MICROSCOPIC)
[2023-01-30 18:13] LABS: Appearance,Urine CLEAR (Clear); Bilirubin,Urine Negative (Negative); Blood, Urine 1+ (Negative); Color,Urine YELLOW (Yellow); Glucose,Urine (UA) Negative (Negative); Ketones,Urine Negative (Negative); Leukocyte Esterase,Urine Negative (Negative); Nitrate,Urine Negative (Negative); Protein,Urine Negative (Negative); Specific Gravity, Urine >= 1.030 (1.005-1.030); Urobilinogen,Urine 0.2 EU/dl (0.2)
[2023-01-30 18:20] LABS: Bacteria,Urine Trace /lpf; WBC,Urine Occasional #/hpf (0-3)
[2023-01-30 18:31] LABS: Urine Pregnancy, HCG Qual. Negative (Negative)
--- NOTE | 2023-01-30 18:40 | CT_ITS ---
PROCEDURE INFORMATION: Exam: CT Abdomen And Pelvis With Contrast Exam date and time: 01/30/2023 6:50 PM Age: 27 years old Clinical indication: Abdominal pain; Additional info: Rlq pain TECHNIQUE: Imaging protocol: Computed tomography of the abdomen and pelvis with contrast. Radiation optimization: All CT scans at this facility use at least one of these dose optimization techniques: automated exposure control; mA and/or kV adjustment per patient size (includes targeted exams where dose is matched to clinical indication); or iterative reconstruction. Contrast material: ISOVUE; Contrast volume: 75 ml; Contrast route: IV; REPORTING DATA: Count of CT and Cardiac NM exams in prior 12 months: This patient has received [address] and 0 known cardiac nuclear medicine studies in the 12 months prior to the current study. COMPARISON: CT ABDOMEN PELVIS W CON 04/23/2022 2:54 AM FINDINGS: Liver: Normal. No mass. Gallbladder and bile ducts: The patient is status post cholecystectomy. Pancreas: Normal. No ductal dilation. Spleen: There are multiple calcifications in the spleen most likely reflects small granulomas. Adrenal glands: Normal. No mass. Kidneys and ureters: Normal. No hydronephrosis. Stomach and bowel: Unremarkable. No obstruction. No mucosal thickening. Appendix: The appendix is distended with periappendiceal stranding and wall thickening. Intraperitoneal space: Unremarkable. No free air. No significant fluid collection. Vasculature: Unremarkable. No abdominal aortic aneurysm. Lymph nodes: Unremarkable. No enlarged lymph nodes. Urinary bladder: Unremarkable as visualized. Reproductive: Unremarkable as visualized. Bones/joints: Unremarkable. No acute fracture. Soft tissues: There is a small fat containing umbilical hernia. IMPRESSION: 1. Findings compatible with acute appendicitis. 2. There is no evidence for perforation or abscess.
[2023-01-30 18:46] LABS: Basophils # 0.1 K/mm3 (0-0.2); Basophils % 0.4 % (0.1-2.0); Eosinophils # 0.1 K/mm3 (0.0-0.4); Eosinophils % 0.8 % (0.1-12.0); Hematocrit 47.1 % (37.0-47.0); Hemoglobin 15.6 g/dL (12.2-16.2); Lymphocytes % 17.7 % (10-50); Mean Corpuscular HGB Conc 33.2 g/dL (31.8-35.4); Mean Corpuscular Hemoglobin 28.8 pg (27.0-31.2); Mean Corpuscular Volume 86.6 fl (81-99); Mean Platelet Volume 8.2 fl (7.4-10.4); Monocytes # 0.6 K/mm3 (0.1-1.0); Monocytes % 3.7 % (1.7-9.3); Neutrophils # 13.2 K/mm3 (1.8-7.8); Neutrophils % 77.4 % (37.0-80.0); Platelet Count 359 K/mm3 (142-424); Red Blood Count 5.44 M/mm3 (4.20-5.40); Red Cell Distribution Width 13.4 % (11.5-17.5)
[2023-01-30 18:47] LABS: Chloride 107 mmol/L (98-107); Potassium 4.2 mmoL/L (3.5-5.1); Sodium 143 mmol/L (136-145)
[2023-01-30 18:50] LABS: Alanine Aminotransferase 25 U/L (12-78); Albumin/Globulin Ratio 1.4 (1.1-1.8); Alkaline Phosphatase 82 U/L (38-126); Anion Gap 19.2 mEq/L (5-15); Aspartate Amino Transferase 28 U/L (14-36); Bilirubin,Total 0.5 mg/dl (0.2-1.3); Blood Urea Nitrogen 12 mg/dl (7-17); Carbon Dioxide 21 mmol/L (22.0-30.0); Creatinine Clearance Estimated 136 mL/min (50-200); Estimated Glomerular Filt Rate 87 ml/min (>60); GFR (African American) 105 ML/MIN (>60); Globulin 3.6 g/dL (1.3-3.2); Total Protein,Serum 8.6 g/dl (6.3-8.2)
[2023-01-30 18:51] LABS: Calcium 10.4 mg/dl (8.4-10.2); Glucose 99 mg/dl (74-100)
[2023-01-30 18:52] LABS: MANUAL DIFFERENTIAL MANUAL DIFFERENTIAL (MANUAL DIFF)
--- NOTE | 2023-01-30 18:56 | HMH.EDGENADL ---
Discharge Plan Disposition Patient Disposition: Admitted As Inpatient Condition: Fair Prescriptions Prescriptions: Continued hyoscyamine sulfate 0.125 mg tablet, sublingual 0.125 mg PO QID PRN (Reason: REFLUX) levofloxacin 500 mg Tablet 500 mg PO DAILY azithromycin [Zithromax] 250 mg tablet 250 mg PO UD DOSE PK Qty: 6 0RF Rx Instructions: Take two (2) tablets today, then one (1) tablet days #2 thru #5 benzonatate 100 mg capsule 100 mg PO TIDP PRN (Reason: Cough) Qty: 30 0RF methylprednisolone 4 mg Tablets,Dose Pack 4 mg PO DIRECTED Qty: 21 0RF Referrals Follow up/Referrals: Riley Ocampo MD [Primary Care Provider] - See instructions Matt Griffin MD [Staff Physician] - See instructions Activity Restrictions/Add. Instructions Additional Instructions/Restrictions: Remove dressings and shower after 48 hours Clinical Impressions Clinical Impression: Acute appendicitis Instructions Patient Instructions: DI for Acute Abdominal Pain Discharge ED Provider: Stephanie Ruff General Adult HPI General Chief complaint: Abdominal Pain Stated complaint: lower abd pain Time Seen by Provider: 01/30/23 17:58 Mode of Arrival: Family Vehicle Limitations: No Limitations Description of Symptoms (Recalled from ER Triage Doc. by RN): Pt stated that about 0930 today she started with lower right quad pain that moves up to right upper quad pain. She denies nausea, and diarrhea. History of Present Illness HPI narrative: This patient is a 27-year-old female with a history of cholecystitis status postcholecystectomy scented to the emergency department for evaluation with concern for right lower quadrant pain that started around 930 this morning. She states that it is severe and constant nothing seems to make it better or worse. She denies any fevers, chills, nausea, vomiting, change in bowel movements, rashes, or swelling, but she notes that she has had no appetite today. She denies any dysuria, hematuria, polyuria, abnormal vaginal discharge, or other concerns. She does still have her ovaries and appendix. Related Data Home Medications Medication Instructions Recorded Confirmed hyoscyamine sulfate 0.125 mg 0.125 mg PO QID PRN REFLUX 05/10/22 05/26/22 sublingual tablet levofloxacin 500 mg tablet 500 mg PO DAILY UTI 05/10/22 05/26/22 Previous Rx's Medication Instructions Recorded azithromycin 250 mg tablet 250 mg PO UD DOSE PK #6 tabs 10/28/22 (Zithromax) benzonatate 100 mg capsule 100 mg PO TIDP PRN Cough #30 caps 10/28/22 methylprednisolone 4 mg tablets in 4 mg PO DIRECTED #21 tabs 10/28/22 a dose pack Allergies Allergy/AdvReac Type Severity Reaction Status Date / Time No Known Allergies Allergy Verified 05/26/22 09:36 [facility] Disclaimer: The information contained in this section may have been updated after the patient was seen, as this information can be updated by other users. Medical History Asthma Gallbladder disease History of COVID-19 Pneumonia Urinary tract infection Surgical History History of laparoscopic cholecystectomy Hx of tonsillectomy Family History Other No significant family history Social History Smoking Status: Current every day smoker tobacco type: cigarettes packs per day: 1 years smoked: 8 second hand exposure: No alcohol intake: never substance use type: denies use current occupational status: unemployed Travel in the last 8 weeks: None household members: family and children housing: apartment current occupation: [employer] current occupational exposures/hazards: No caffeine: Yes ROS Obtained: Yes All systems reviewed & no additional complaints ex
--- NOTE | 2023-01-30 19:16 | PC.NURSE ---
paged Dr. Griffin surgery supervisor telephone information for
--- NOTE | 2023-01-30 19:16 | PC.NURSE ---
Dr. Griffin speaking with Dr. Ruff at this time
--- NOTE | 2023-01-30 19:17 | PC.NURSE ---
Dr. Griffin advised to call in surgery team. supervisor anodizing notified.
[2023-01-30 19:21] LABS: Hypochromasia 1+; Lymphocytes % 19 % (10-50); Monocytes % 4 % (2-9); Neutrophils % 77 % (42-76); Platelet Estimate Normal; Total Cells Counted 100
--- NOTE | 2023-01-30 19:30 | PC.NURSE ---
Surgery team paged at [address] Marte called back at 1918, SUmmer at 1919, and Stephanie at 1919. Awaiting their arrival and ED team notified
--- NOTE | 2023-01-30 19:35 | PC.NURSE ---
Dr. Griffin at BS
--- NOTE | 2023-01-30 19:44 | EXP.ANES.CKL ---
[facility] Disclaimer: The information contained in this section may have been updated after the patient was seen, as this information can be updated by other users. Medical History Asthma Gallbladder disease History of COVID-19 Pneumonia Urinary tract infection Surgical History History of laparoscopic cholecystectomy Hx of tonsillectomy Family History Other No significant family history Social History Smoking Status: Current every day smoker tobacco type: cigarettes packs per day: 1 years smoked: 8 second hand exposure: No alcohol intake: never substance use type: denies use current occupational status: unemployed Travel in the last 8 weeks: None household members: family and children housing: apartment current occupation: [employer] current occupational exposures/hazards: No caffeine: Yes [facility] Anesthesia Checklist Patient Identification Patient Identification: Arm Band and Verbal (Name & ) Structural Data Admitted From: Emergency Dept Planned Operative Procedure/s: Lap. appendectomy Consent for Planned Operative Procedure(s) Verified: Yes Verified Documents: Surgical Consent NPO Status Verified Time NPO: 13:00 Chart Verification Results Verified: CBC and BMP Additional verifications Anesthesia Reactions: No Hx Blood Transfusions: No Blood Transfusion Reaction: No Airway Assessment Mallampati Score:: Class I C-Spine Mobility Assessed: Yes TMJ Mobility Assessed: Yes Dentition: Good Dentition Neurological Assessment Level of Consciousness: Awake Hx Seizures: No Numbness or tingling in extremities: No Anesthesia Plan Anesthesia Risk discussed: Yes Anesthesia Plan: Verified ASA Class: II (E) Anesthesia Type: General
--- NOTE | 2023-01-30 19:44 | PC.NURSE ---
Dr Griffin at bedside explaining procedure, pre op paperwork signed, pt ambulatory to bathroom, VSS, awaiting ACCOUNTS PAYABLE ANALYST to transport pt.
--- NOTE | 2023-01-30 21:18 | EXP.OP.NOTE ---
Date of procedure: 01/30/23 Pre-op Diagnosis:: Appendicitis Post-op Diagnosis:: Suppurative appendicitis Procedure performed:: Laparoscopic appendectomy Surgeon:: Matt Griffin MD RECYCLING CENTER OPERATOR:: Estuardo Walsh Anesthesia: GETNeha Estimated blood loss (mL): 15 Operative findings:: Inflamed/enlarged appendix with suppurative changes Appendix densely adhesed to lateral cecal margin Operative note:: After informed consent was obtained the patient was taken to the operating room and placed in the supine position. General anesthesia was induced and her abdomen was prepped and draped in a sterile fashion. After infiltration local anesthetic a supraumbilical incision was made. A Veress needle was placed in position. The abdomen was insufflated. A 12 mm optical trocar was placed in position. Under direct visualization a 5 mm trocar was placed in the suprapubic position and an additional 5 mm trocar was placed in the left lower quadrant. The appendix was carefully elevated. Dense adhesions were noted along the cecal margin. The appendix was enlarged and inflamed. Although suppurative changes were noted, no obvious perforation was seen. No abscess cavity was noted. A window was bluntly made in the mesoappendix at the base. An Endopath 45 stapling device was used to take the appendix at its base. Harmonic michael were then used to transect the appendix at its margin. As the appendix was densely adhered to the cecal margin careful attention was utilized to avoid thermal injury to the colon. No obvious injury was seen. The appendix was then placed in a retrieval bag and removed through the supraumbilical trocar site. The right lower quadrant was thoroughly irrigated. No active bleeding or sign of injury was noted. Fascia at the supraumbilical trocar site was reapproximated with a 0 Ethibond. All wounds were irrigated after the remaining trocars were removed. Skin was reapproximated with 4-0 Monocryl in a mattress fashion to facilitate hemostasis. Dressings were applied and the patient was transferred to recovery after extubation. Condition: stable Disposition: PACU Specimens:: Appendix Complications:: No immediate
--- NOTE | 2023-01-30 21:22 | P.PNANES_ITS ---
[facility] Anesthesia Record Part I Anesthesia Record I Intake, IV Amount: 800 Hydration: Adequate Estimated blood loss (mL): 15 Urine output (mL): 50 Blood Pressure: 109/50 SaO2: 97 Pulse Rate: 97 Airway Patency: Patent Respiratory Rate: 14 Temperature: 97.2 F Patient is:: Awake Stable to PACU at:: 21:15
--- NOTE | 2023-01-30 22:24 | SUR.PHASEII ---
Lortab 5/325 po given x 1. Unable to scan.
--- NOTE | 2023-01-31 07:09 | P.PNANES_ITS ---
[facility] Anesthesia Record Part II Anesthesia Record Part II Discharge Time: 21:55 Destination: Surgical Day Care (OP Surgery) PACU nurse assessment reviewed?: Yes Patient Condition:: Good Anesthesia Complications:: None Swallowing reflex intact?: Yes Airway Patency: Patent Cyanosis?: No Blood Pressure: 103/57 SaO2: 99 Respiratory Rate: 14 Pulse Rate: 90 Temperature: 97.5 F Mental Status: Alert & Oriented Pain level:: 2 Nausea and/or vomitting:: None Intake, IV Amount: 0 Hydration: Adequate
[2023-01-31 07:10] VITALS: BP 103/57; PULSE 90; RESP 14; TEMP 36.4; O2SAT 99
== END 2023-01-30 22:20 ==
LOC: UTC 17:53 → ER 18:21 → SDC 01-31 14:01
PROVIDERS: Nurse Practitioner Family; Emergency Provider Emergency Medicine; PCP Family Medicine; Visit Provider Surgery
PROC: 0DTJ4ZZ Resection of Appendix, Percutaneous Endoscopic Approach (ICD-10-PCS; CPT 44970; principal; 2023-01-30 20:00)
DX: K35.33 Acute appendicitis with perforation, localized peritonitis, and gangrene, with abscess (principal)
CPT/HCPCS: 44970; 74177; 80053; 81001; 81025; 85007; 85025; 87086; J0131; J0330; J0696; J2405; Q9967

== ENCOUNTER 2024-10-11 13:49 | Outpatient (CLI) | payer OTHER, SELFPAY ==
[2024-10-12 05:08] LABS: Hep A Ab, IgM Negative (Negative); Hepatitis B Surf Ab Quant <3.5 mIU/mL (Immunity>10)
[2024-10-12 07:11] LABS: Measles Antibodies, IgG 22.8 AU/mL (Immune >16.4); Mumps Abs, IgG 14.3 AU/mL (Immune >10.9); Rubella Antibodies, IgG 1.28 index (Immune >0.99); Varicella Zoster IgG Non Reactive (Non Reactive)
== END 2024-10-11 23:59 | disposition home or self-care (01) ==
LOC: LAB 13:51
PROVIDERS: PCP Family Medicine; Visit Provider Family Medicine
DX: Z01.84 Encounter for antibody response examination (principal)
CPT/HCPCS: 86706; 86709; 86735; 86762; 86765; 86787

== ENCOUNTER 2025-01-17 11:01 | Outpatient (CLI) | payer OTHER, SELFPAY ==
--- OUTSIDE RECORDS SUMMARY | 2024-12-17 13:40 | XMS_ITS | Encounter Summary ---
Author Organization [facility] Address [address] [place] [address] Care Team Providers Care Digital Marketing Executive Name Role Phone Jackson Ocampo MD Primary Care Provider [phone] Reason for Visit * Reason Comments Contraception Pt wants to talk abo ut options with control is not on depo no morePt has no other concernsPt last pap was 06/15/2023 was normalPt LMP was 3 years ago Encounter Details Date Type Department Care Team (Late st Contact Info) Description 12/17/2024 1:40 PM EDT Office Visit Obstetrics & Gynecology [address] [place] [address] Indiana Sood, CASHIER ASSISTANT, CNM [address] [facility] [place] [address] [place] [address] control counseling (Primary Dx); Family planning Social History Tobacco Use Types Packs/Day Years Used Date Smoking Tobacco: Every Day Cigarettes Smokeless Tobacco: Current Alcohol Use Standard Drinks/Week Comments Never 0 (1 standard drink = 0.6 oz pur e alcohol) PHQ-2 Answer Date Recorded Patient Health Questionnaire-2 Score 0 12/17/2024 [place] Depression Scale Answer Date Recorded [place] Depression Scale Total 0 03/10/2022 The thought of harming myself has occurred to me . Never 03/10/2022 Comments No Sex and Gender Information Value Date Recorded Sex Assigned at Not on file Legal Sex Female 6:10 PM EDT Gender Identity Not on file Sexual Orientation Not on file documented as of this encounter Last Filed Vital Signs Vital Sign Reading Time Taken Comments Blood Pressure 114/73 12/17/2024 1:47 PM EDT Pulse 89 12/17/2024 1:47 PM EDT Temperature 36.7 C (98 F) 12/17/2024 1:47 PM EDT Respiratory Rate - - Oxygen Saturation 100% 12/17/2024 1:47 PM EDT Inhaled Oxygen Concentration - - Weight 78.8 kg (173 lb 11.6 oz) 12/17/2024 1:47 PM EDT Height 160 cm (5' 3 ) 12/17/2024 1:47 PM EDT Body Mass Index 30.77 12/17/2024 1:47 PM EDT documented in this encounter Functional Status * Over the past 2 weeks, how often have you been bothered by any of the following problems? Question Answer Date of Assessment Author Little interest or pleasure in doing things Not at all 12/17/2024 1:48 PM EDT Kiana Brandt RN Feeling down, depressed, or hopeless Not at all 12/17/2024 1:48 PM EDT Kiana Brandt RN Patient Health Questionnaire -2 Score 0 12/17/2024 1:48 PM EDT Kiana Brandt RN * If you checked off any problems on this questionnaire so far, Question Answer Date of Assessment Author How difficult have these problems made it for you to do your work, take care of things at home, or get along with other people? Not difficult at all 12/17/2024 1:48 PM EDT Kiana Brandt RN documented as of this encounter Miscellaneous Notes * Progress Notes - Indiana Sood, KRYSTYNA, HENRY - 12/17/2024 1:40 PM EDT Gynecology Progress Note Subjective Ysabel Ordaz is a 29 y.o. ( x 2) here for control consultation. She was on Depo with her last dose in September. She continues to forget to come get the next dose and has noted weight gain. Would like to go back to OCP. LMP: none with depo Contraception: none currently, out of depo window Pap: 06/2023, wnl Review of Systems Constitutional: Negative. HENT: Negative. Eyes: Negative. Respiratory: Negative. Cardiovascular: Negative. Gastrointestinal: Negative. Endocrine: Negative. Genitourinary: Negative. Musculoskeletal: Negative. Skin: Negative. Allergic/Immunologic: Negative. Neurological: Negative. Hematological: Negative. Psychiatric/Behavioral: Negative. Objective Visit Vitals BP 114/73 Pulse 89 Temp 36.7 ??C (98 ??F) Physical Exam Constitutional: Appearance: Normal appearance. HENT: Head: Normocephalic. Right Ear: External ear normal. Left Ear: External ear normal. Cardiovascular: Rate and Rhythm: Normal rate. Pulmonary: Effort: Pulmonary effort is normal. Musculoskeletal: General: Normal range of motion. Neurological: General: No focal deficit present. Mental Status: She is alert and oriented to person, place, and time. Skin: General: Skin is warm and dry. Psychiatric: Mood and Affect: Mood normal. Behavior: Behavior normal. Thought Content: Thought content normal. Judgment: Judgment normal. Vitals and nursing note reviewed. Assessment/Plan Assessment & Plan control counseling Orders: POCT Urine norethindrone-ethinyl estradiol (06/25) 1-20 MG-MCG tablet; Take 1 tablet by mouth daily. Family planning Orders: norethindrone-ethinyl estradiol (06/25) 1-20 MG-MCG tablet; Take 1 tablet by mouth daily. - Patient was counseled on all options of contraception including pills, patches, Nuvaring, Nexplanon, Depo Provera, IUDs (Kyleena, Mirena, and Paragaurd), and non-hormonal options. Benefits/risk, possible side effect, and proper use was reviewed. POC - Patient denies history of migraines, blood clots, hypertension, or smoking. - Patient desires to start OCP. Declines contraindications. Discussed risks/benefits, possible sideeffects, when to start, use of back up protection, and ACHES precautions. Negative UPT today in office. Rx provided. Schedule 3 month follow up visit. - Patient agrees with POC. All questions answered. - 3 month follow up visit. A total of 25 minutes was spent on this visit with at least more than 50% of the encounter spent incounseling and/or coordinating care including reviewing previous notes, counseling the patient on their identified issues as indicated in the note, discussing previous and/or ordered tests or imaging, prescribing/refilling medications, and documenting the findings in this note, as well as laying out a specific plan of action for this patient. documented in this encounter Plan of Treatment Upcoming Encounters Date Type Department Care Team (Late st Contact Info) Description 07/19/2025 9:45 AM EST Procedure Visit Obstetrics & Gynecology [address] [place] [address] Eliseo Barrientos MD [address] [place] [address] documented as of this encounter Procedures Procedure Name Priority Date/Time Associated Diagnosis Comments POCT , URINE Routine 12/17/2024 2:09 PM EDT control counseling documented in this encounter Results * POCT Urine (12/17/2024 2:09 PM EDT) [facility] Urine - Point of Care Negative Negative - women after 7 weeks gestation and dilute urine (specific gravity <1.010) may have false negative results. Plasma HCG testing is recommended. Test performed at Point of Care. INTERNAL QC OK, PREG URINE Yes KIT LOT NUMBER, PREG URINE [id number] KIT EXPIRATION DATE, PREG URINE 06/17/2026 Urine Urine specimen obtained by clean catch procedure / Unknown 12/17/2024 2:09 PM EDT Indiana Sood APRN, CNM POINT OF CARE TEST ENTE R/EDIT ORDERABLES Final Result documented in this encounter Visit Diagnoses Diagnosis control counseling- Primary Family planning Other general counseling and advice for contraceptive management documented in this encounter Additional Health Concerns Assessment Noted Time A fall risk assessment has been complete d for the patient 12/17/2024 1:48 PM EDT A Body Mass Index follow-up plan has been documented for the patient 12/17/2024 2:22 PM EDT documented as of this encounter Care Teams Digital Marketing Executive Relationship Specialty Start Date End Date Jackson Ocampo MD [address] [place] [address] PCP - General 10/17/20 documented as of this encounter
--- NOTE | 2025-01-17 11:04 | XR_ITS ---
FINAL REPORT CLINICAL HISTORY: Nonspecific cough FINDINGS: PA and lateral views of the chest are obtained. There is no prior exam for comparison. The cardiac and mediastinal silhouettes are within normal limits. The lungs are clear. There is no pleural effusion, pneumothorax, or acute osseous abnormality. IMPRESSION: No radiographic evidence of acute cardiac or pulmonary disease. Reviewed, Interpreted and Dictated by Kerrie Quinn MD Transcribed by Deirdre Khan Authenticated and [facility]
--- OUTSIDE RECORDS SUMMARY | 2025-01-17 11:09 | XMS_ITS | Clinical Summary ---
Author Organization [facility] Address [address] [place] [address] Care Team Providers Care Nuclear Cardiology Technologist Name Role Phone Jackson Ocampo MD Primary Care Provider [phone] Allergies No known active allergies Medications norethindrone-et hinyl estradiol (06/25) 1-20 MG-MCG tabletIndication s: control counseling,Famil y planning Take 1 tablet by mouth daily. 28 tablet 11 12/17/2024 Active Active Problems Problem Noted Date Diagnosed Date 35 weeks gestation of 01/29/2022 COVID-19 affecting in third trimester 01/26/2022 Cholestasis of in third trimester 01/05 Supervision of other high risk pregnancies, thir d trimester 01/26/2022 Tobacco smoking affecting , antepartum 10/27/2021 Encounters Date Type Department Care Team Description 12/17/2024 1:40 PM EDT Office Visit Obstetrics & Gynecology [address] [place] [address] Indiana Sood, RACING MECHANIC, CNM control counseling (Primary Dx); Family planning 12/17/2024 Travel 12/13/2024 Telephone Obstetrics & Gynecology [address] [place] [address] Eliseo Barrientos MD from Last 3 Months Immunizations Immunization Administration Dates Next Due DTaP 09/18/2001, 8,1996,1996,1996 Hep A, Adult 04/05/2018 Hep B, Adolescent or Pediatric 04/04/1997,1995,1996 Hib (PRP-OMP) 08/12/1997, 7,1996,1995 IPV 09/18/2001, 7,1996,1995 Influenza, injectable, quadr ivalent, preservative free 04/05/2018 MMR 09/18/2001,06/18/1997 Tdap 12/11/2021,08/23/2018,09/22/2007 Varicella 04/04/1997 Social History Tobacco Use Types Packs/Day Years Used Date Smoking Tobacco: Every Day Cigarettes Smokeless Tobacco: Current Tobacco Cessation:Ready to Q uit: Not Asked; Counseling Given: Not Answered Alcohol Use Standard Drinks/Week Comments Never 0 (1 standard drink = 0.6 oz pur e alcohol) PHQ-2 Answer Date Recorded Patient Health Questionnaire-2 Score 0 12/17/2024 [place] Depression Scale Answer Date Recorded [place] Depression Scale Total 0 03/10/2022 The thought of harming myself has occurred to me . Never 03/10/2022 Comments No Sex and Gender Information Value Date Recorded Sex Assigned at Not on file Legal Sex Female 6:10 PM EDT Gender Identity Not on file Sexual Orientation Not on file Last Filed Vital Signs Vital Sign Reading Time Taken Comments Blood Pressure 114/73 12/17/2024 1:47 PM EDT Pulse 89 12/17/2024 1:47 PM EDT Temperature 36.7 C (98 F) 12/17/2024 1:47 PM EDT Respiratory Rate 20 06/15/2023 11:4 0 AM EST Oxygen Saturation 100% 12/17/2024 1:47 PM EDT Inhaled Oxygen Concentration - - Weight 78.8 kg (173 lb 11.6 oz) 12/17/2024 1:47 PM EDT Height 160 cm (5' 3 ) 12/17/2024 1:47 PM EDT Body Mass Index 30.77 12/17/2024 1:47 PM EDT Plan of Treatment Upcoming Encounters Date Type Department Care Team (Late st Contact Info) Description 07/19/2025 9:45 AM EST Procedure Visit Obstetrics & Gynecology [address] [place] [address] Eliseo Barrientos MD [address] [place] [address] Health Maintenance Due Date Last Done Comments [facility]-/Child/Adol SDOH Screenings 1996 [facility]-Varicella Vaccines (2 of 2 - 2-dose childhood series) 10/16/2001 04/04/1997 [facility]- SDOH Screenings 2014 [facility]-Adult SDOH Screenings 2014 [facility]-Hepatitis A Vaccines (2 of 2 - Risk 2-dose series) 10/03/2018 04/05/2018 [id number] Vaccine (2 - season) 2024 06/23/2021 [facility]-Influenza Vaccine (#1) 2025 04/05/2018, [facility]-Depression Screening 12/17/2025 12/17/2024, 10/2021 [facility]-Pap Smear 06/15/2026 06/15/2023, 06/09/2022 [facility]-DTaP,Tdap,and Td Vaccines (9 - Td or Tdap) 12/12/2031 12/11/2021, 08/23/2018, 09/22/2007, Additional history exists [facility]-Zoster Vaccines (1 of 2) 2046 04/04/1997 [facility]-Hepatitis B Vaccines Completed 997, 1996, 1996 [facility]-HIB Vaccines Completed 08/12/1997, , 1996, Additional history exists [facility]-IPV Vaccines Completed 09/18/2001, , 1996, Additional history exists HPV Vaccines Completed 10/28/2009, 01/06/2009 [facility]-HIV Screening Completed 07/03/2021 [facility]-Hepatitis C Screening Completed 01/18/2022, [facility]-Obesity Intervention Completed 025, 07/16/2024, 03/30/2024, Additional history exists [facility]-Pneumococcal Vaccine: Pediatrics (0 to 5 Years) and At-Risk Patients (6 to 49 Years) Aged Out No longer eligible based on patient's age to complete this topic [facility]-Rotavirus Vaccines Aged Out No lo nger eligible based on patient's age to complete this topic Procedures Procedure Name Priority Date/Time Associated Diagnosis Comments POCT , URINE Routine 12/17/2024 2:09 PM EDT control counseling PAP TEST - CYTOLOGY Routine 06/15/2023 1 1:57 AM EST ASCUS with positive high risk HPV cervical ACUTE HEPATITIS PANEL STAT 01/18/2022 9:37 AM EDT Cholestasis of in third trimester HIV 1/2 ANTIBODY/ANTIGEN SCREEN WITH REFLEX TO HIV I/II DIFFERENTIATION Routine 07/03/2021 9:59 AM EST Unsure of LMP (last menstrual period) as reason for ultrasound scan from Last 3 Months or Most Recently Relevant to Health Maintenance Results * POCT Urine (12/17/2024 2:09 PM EDT) Urine - Point of Care Negative Negative [...] Unknown 12/17/2024 2:09 PM EDT Indiana Sood RACING MECHANIC, CNM POINT OF CARE TEST ENTE R/EDIT ORDERABLES Final Result * Pap Test (06/15/2023 11:57 AM EST) Case Report Cytology Case: [id number] Authorizing Provider: Eliseo Barrientos MD Collected: 06/15/2023 1157 Ordering Location: Obstetrics & Gynecology Received: 06/16/2023 1050 First Screen: Nadia Woo Specimen: ThinPrep Pap Test, Liquid-Based Cervical/Vaginal 06/21/2023 12:22 PM EST [facility] Interpretation NEGATIVE FOR INTRAEPITHELIAL LESION OR MALIGNANCY 06/21/2023 12:22 PM EST [facility] at 1222 EST Specimen Adequacy Satisfactory for evaluation; endocervical/denis sformation zone component present. Slide scanned and imaged by ThinPrep Imaging System with manual review of all selected beltran. 06/21/2023 12:22 PM EST [facility] Cervical cytology is a screening test primarily for squamous cancers and precursors and has associated false negative and positive results. New technologies such as liquid based sampling may decrease but will not eliminate all false negative results. Regular screening and follow-up of unexplained clinical signs and symptoms are recommended to minimize false negative results. Please see the ASCCP website (www.asccp.org)fo r followup recommendations. If HPV testing was requested, correlation with the results is suggested (please call Microbiology at [phone] for results). 06/21/2023 12:22 PM EST [facility] Menstrual Status Not Applicable 06/06 12:22 PM EST [facility] Contraceptive History Not Applicable 06/21/2023 12:22 PM EST [facility] Screening Type Routine Screen 2023 12:22 PM EST [facility] High Risk? No 06/21/2023 12:22 PM [facility] HPV Testing Requested? Request HPV testing if ASCUS or LSIL. 06/21/2023 12:22 PM EST [facility] Previous Cancer History No 06/21/2023 12:22 PM EST [facility] Clinical Information R87.610, R87.810 - ASCUS with positive high risk HPV cervical [ICD-10-CM] 06/21/2023 12:22 PM EST [facility] Swab Vaginal and cervical cytologic material / Unknown Non-blood Collection / Unknown 06/15/2023 11:57 AM EST 06/16/2023 10:50 AM EST us Eliseo Barrientos MD LAB CYTOLOGY ORDERABLES Final R esult [facility] [address] [place] [id number] * Hepatitis panel, acute (01/18/2022 9:37 AM EDT) Hepatitis B Surf Antigen Negative Negative 01/18/2022 2:40 PM EDT [facility] Hepatitis C Antibody Negative Negative 01/18/2022 2:40 PM EDT [facility] Hepatitis A Antibody IgM Negative Negative 01/18/2022 2:40 PM EDT [facility] Hepatitis B Core Antibody IgM Negative Negative 01/18/2022 2:40 PM EDT [facility] Blood Venous blood specimen / Unknown Venipuncture / Unknown 01/18/2022 9:37 AM EDT 01/18/2022 1:18 PM EDT Result Hallie Barrientos MD LAB BLOOD ORDERABLES Final Resu lt Performing Organization Address City/[facility]/ZIP Co de Phone Number [facility] [address] [place] [address] * HIV 1 & 2 Antibody/Antigen Screen (07/03/2021 9:59 AM EST) Pathologist [facility] HIV 1 & 2 Antibody/Anti gen Screen Nonreactive Nonreactive 07/03/2021 2:17 PM EST [facility] Blood Venous blood specimen / Unknown Venipuncture / Unknown 07/03/2021 9:59 AM EST 07/03/2021 12:50 PM EST Result Hallie Barrientos MD LAB BLOOD ORDERABLES Final Resu lt Performing Organization Address City/[facility]/ZIP Co de Phone Number [facility] [address] [place] [address] from Last 3 Months or Most Recently Relevant to Health Maintenance [place] [address] [employer] [facility] MEDICAID Care Teams Nuclear Cardiology Technologist Relationship Specialty Start Date End Date Jackson Ocampo MD [address] [place] [address] PCP - General 10/17/20
--- OUTSIDE RECORDS SUMMARY | 2025-01-17 11:09 | XMS_ITS | Encounter Summary ---
Author Organization Healthcare Address [address] [place] [address] Care Team Providers Care Insole Cementer Name Role Phone Jackson Ocampo MD Primary Care Provider [phone] Encounter Details Date Type Department Care Team (Late st Contact Info) Description 12/13/2024 Telephone Obstetrics & Gynecology [address] [place] [address] Eliseo Barrientos MD [address] [place] [address] Social History Tobacco Use Types Packs/Day Years Used Date Smoking Tobacco: Every Day Cigarettes Smokeless Tobacco: Current Alcohol Use Standard Drinks/Week Comments Never 0 (1 standard drink = 0.6 oz pur e alcohol) PHQ-2 Answer Date Recorded Patient Health Questionnaire-2 Score 0 12/17/2024 [place] Depression Scale Answer Date Recorded [place] Depression Scale Total 0 03/10/2022 The thought of harming myself has occurred to me . Never 03/10/2022 Comments No Sex and Gender Information Value Date Recorded Sex Assigned at Not on file Legal Sex Female 6:10 PM EDT Gender Identity Not on file Sexual Orientation Not on file documented as of this encounter Functional Status * Over the past 2 weeks, how often have you been bothered by any of the following problems? Question Answer Date of Assessment Author Little interest or pleasure in doing things Not at all 12/17/2024 1:48 PM EDT Kiana Brandt RN Feeling down, depressed, or hopeless Not at all 12/17/2024 1:48 PM EDT Kiana Brandt, RN Patient Health Questionnaire -2 Score 0 12/17/2024 1:48 PM EDT Kiana Brandt, RN * If you checked off any problems on this questionnaire so far, Question Answer Date of Assessment Author How difficult have these problems made it for you to do your work, take care of things at home, or get along with other people? Not difficult at all 12/17/2024 1:48 PM EDT Kiana Brandt , RN documented as of this encounter Miscellaneous Notes * Telephone Encounter - Florencia Frank - 12/13/2024 3:42 PM EDT Patient was due for depo end of September, made her a appt to come in Tuesday to see victoria to restart depo * Telephone Encounter - Umu Maurice - 12/13/2024 2:59 PM EDT Clinical Concern/Question Reason for Call: Pt asking when she is due for depo shot. Please call Best contact number: [phone] (home) Optimal time of day to reach caller: ANYTIME Additional comments/information from caller: None Note: Please do not reply to this message. Follow-up communication and further actions as a result of this message need to be communicated with the patient directly, if the patient is not active onMyChart. If the patient is active on MyChart, they will receive notification of the communication/outcome via [employer] documented in this encounter Plan of Treatment Upcoming Encounters Date Type Department Care Team (Late st Contact Info) Description 07/19/2025 9:45 AM EST Procedure Visit Obstetrics & Gynecology [address] [place] [address] Eliseo Barrientos MD [address] [place] [address] documented as of this encounter Visit Diagnoses Not on filedocumented in this encounter Additional Health Concerns Assessment Noted Time A fall risk assessment has been complete d for the patient 07/16/2024 8:55 AM EST A Body Mass Index follow-up plan has been documented for the patient 07/16/2024 9:09 AM EST documented as of this encounter Care Teams Insole Cementer Relationship Specialty Start Date End Date Jackson Ocampo MD [address] [place] [id number] PCP - General 10/17/20 documented as of this encounter
--- OUTSIDE RECORDS SUMMARY | 2025-01-17 11:09 | XMS_ITS | Clinical Summary ---
Author Organization [facility] Address [address] [place], [place] [id number] Care Team Providers Care Tree Worker Name Role Phone Jackson Ocampo M.D. Primary Care Provider [phone] Source Comments [facility] is fully rolled out with thefollowing exceptions:General Clinical Research [facility] Allergies No known active allergies Medications dicyclomine (BENTYL) 20 MG tabletIndication s:Abdominal pain, other specified site,Loose stools Take 1 Tab (20 mg total) by mouth 2 times a day. 60 Tab 4 09/26/2012 Active Active Problems Problem Noted Date Diagnosed Date Abdominal pain, other specified site 09/26/2012 Loose stools 09/26/2012 Social History Tobacco Use Types Packs/Day Years Used Date Smoking Tobacco: Never Assessed Comments Unknown Sex and Gender Information Value Date Recorded Sex Assigned at Not on file Legal Sex Female 2:29 PM EDT Gender Identity Not on file Sexual Orientation Not on file Last Filed Vital Signs Vital Sign Reading Time Taken Comments Blood Pressure 120/60 09/26/2012 8:28 AM EDT Pulse 75 09/26/2012 8:28 AM EDT Temperature - - Respiratory Rate - - Oxygen Saturation - - Inhaled Oxygen Concentration - - Weight 76.1 kg (167 lb 12.3 oz) 09/26/2012 8:28 AM EDT Height 157 cm (5' 1.81 ) 09/26/2012 8:28 AM EDT Body Mass Index 30.87 09/26/2012 8:28 AM EDT Plan of Treatment Health Maintenance Due Date Last Done Comments MMR IMMUNIZATION (1 of 1 - S tandard series) 1997 DTAP/Tdap/Td IMMUNIZATION (1 - Tdap) 2003 VARICELLA IMMUNIZATION (1 of 2 - 13+ 2-dose series) 2009 HEPATITIS B IMMUNIZATION (1 of 3 - 19+ 3-dose series) 2015 HPV IMMUNIZATION (1 - 3-dose SCDM series) 2023 COVID-19 Vaccine (1 - 2023-2 5 season) 2024 AMB SEASONAL FLU VACCINE (#1) 04/06/2025 HIB IMMUNIZATION Aged Out No longer e ligible based on patient's age to complete this topic IPV IMMUNIZATION Aged Out No longer e ligible based on patient's age to complete this topic MCV4 IMMUNIZATION Aged Out No longer eligible based on patient's age to complete this topic MENINGOCOCCAL B VACCINE Aged Out No l onger eligible based on patient's age to complete this topic PNEUMOCOCCAL IMMUNIZATION Aged Out No longer eligible based on patient's age to complete this topic Respiratory Syncytial Virus (RSV) <20mo Aged Out No longer eligible b ased on patient's age to complete this topic Care Teams Tree Worker Relationship Specialty Start Date End Date Jackson Ocampo M.D. [address] [place] [id number] PCP - General External Family Practice 10/26/12
--- OUTSIDE RECORDS SUMMARY | 2025-01-17 11:09 | XMS_ITS | Encounter Summary ---
Author Organization [facility] Address [address] [place] [address] Care Team Providers Care Sanding Line Operator Name Role Phone Jackson Ocampo MD Primary Care Provider [phone] Encounter Details Date Type Department Care Team (Latest Contact Info) Description 12/17/2024 Travel Social History Tobacco Use Types Packs/Day Years Used Date Smoking Tobacco: Every Day Cigarettes Smokeless Tobacco: Current Alcohol Use Standard Drinks/Week Comments Never 0 (1 standard drink = 0.6 oz pur e alcohol) PHQ-2 Answer Date Recorded Patient Health Questionnaire-2 Score 0 12/17/2024 [place] Depression Scale Answer Date Recorded [place] Depression Scale Total 0 03/10/2022 The thought [...] Brandt RN documented as of this encounter Plan of Treatment Upcoming Encounters Date Type Department Care Team (Late st Contact Info) Description 07/19/2025 9:45 AM EST Procedure Visit Obstetrics & Gynecology [address] [place] [address] Eliseo Barrientos MD [address] [place] [address] documented as of this encounter Visit Diagnoses Not on filedocumented in this encounter Additional Health Concerns Assessment Noted Time A fall risk assessment has been complete d for the patient 12/17/2024 1:48 PM EDT A Body Mass Index follow-up plan has been documented for the patient 12/17/2024 2:22 PM EDT documented as of this encounter Care Teams Sanding Line Operator Relationship Specialty Start Date End Date Jackson Ocampo MD [address] [place] [address] PCP - General 10/17/20 documented as of this encounter
== END 2025-01-17 23:59 | disposition home or self-care (01) ==
LOC: RAD 11:02
PROVIDERS: PCP Family Medicine; Visit Provider Student in an Organized Health Care Education/Training Program
DX: J02.9 Acute pharyngitis, unspecified (principal); R05.9 Cough, unspecified
CPT/HCPCS: 71046